=== PATIENT | female | born 1965 | race Caucasian/White ===

== ENCOUNTER → 2016-05-17 | Outpatient (CLI) | payer OTHER ==
--- NOTE | 2016-05-17 12:03 | US ---
EXAMINATION TYPE: US abdomen complete DATE OF EXAM: 05/17/2016 8:12 AM COMPARISON: CT abdomen pelvis 26 June 2013 CLINICAL HISTORY: US. Abdominal cramping, nausea, bloating, cholecystectomy EXAM MEASUREMENTS: Liver Length: 13.9cm Gallbladder Wall: surgically absent CBD: 0.6cm Spleen: 11.7cm Right Kidney: 11.1 x 4.3 x 5.6cm Left Kidney: 11.8 x 5.4 x 5.2cm ANATOMY: Visualized portions of the pancreas are unremarkable. Abdominal aorta is not aneurysmal. Inferior bjorn a cava normal as seen. The liver shows a coarse echotexture. There is no ascites. Pancreas: visualized portions appear wnl, tail obscured by overlying bowel Liver: small cystic area = 0.4 x 0.4 x 0.5cm Gallbladder: surgically absent CBD: 6 mm which is within normal limits status post cholecystectomy. Spleen: wnl Right Kidney: no evidence of hydronephrosis/mass Left Kidney: lobulated, no evidence of hydronephrosis/mass Upper IVC: wnl Abd Aorta: appears wnl The spleen is unremarkable. Kidneys are symmetric and free of hydronephrosis. No renal lesions are seen. IMPRESSION: There may be fatty infiltration of the liver versus hepatocellular disease, probable smal l cyst noted. Postcholecystectomy change.
--- NOTE | 2016-05-17 12:11 | US ---
EXAMINATION TYPE: US extremity nonvasc mass LT DATE OF EXAM: 05/17/2016 9:48 AM COMPARISON: NONE CLINICAL HISTORY: US. Swelling/lump left upper outer thigh that changes in size Ultrasound performed at the area of patient's palpable abnormality upper outer left thigh TECHNOLOGIST IMPRESSION: 2 hyperechoic areas noted within patient's area of concern ( left upper out er thigh) measuring 0.4 x 0.3 x 0.4cm and 1.0 x 0.4 x 0.8cm Echogenic foci show nonaggressive appearance. IMPRESSION: Findings could possibly represent lipomas, follow-up clinically.
--- NOTE | 2016-05-17 12:15 | US ---
EXAMINATION TYPE: US pelvic complete DATE OF EXAM: 05/17/2016 8:45 AM COMPARISON: NONE CLINICAL HISTORY: US. Pelvic pain TECHNIQUE: Transvaginal (TV) and Transabdominal (TA) Date of LMP: 2 years ago EXAM MEASUREMENTS: Uterus: 7.1 x 4.0 x 5.0cm Endometrial Stripe: 0.4cm Right Ovary: 2.6 x 1.5 x 1.5cm Left Ovary: 2.0 x 1.4 x 1.3cm FINDINGS: Transabdominal pelvic ultrasound scanning performed. Endovaginal scanning performed for better evalua tion of the uterus 1. Uterus: Anteverted Nabothian cysts,Heterogeneous in appearance with multiple hypoechoic myomet rial foci suggestive of fibroids noted, largest = 1.9 x 1.8 x 2.6cm at posterior body 2. Endometrium: appears wnl 3. Right Ovary: appears wnl as visualized 4. Left Ovary: appears wnl as visualized 5. Bilateral Adnexa: wnl 6. Posterior cul-de-sac: appears wnl There is no fluid IMPRESSION: Fibroid uterus
--- NOTE | 2016-05-25 10:55 | P.ARTDOP ---
Arterial Doppler LOWER EXTREMITY ARTERIAL DOPPLER: DATE OF SERVICE: 05/17/2016 Reason for study: Intermittent leg pain. Doppler waveforms: Multiphasic bilaterally throughout. Pulse volume recording: Normal configuration. Pressure gradients: None. Ankle-brachial indices: Greater than 1 bilaterally. Toe pressures: 113 on the right, 110 on the left Impression: Normal study.
== END | disposition home or self-care (01) ==
LOC: RADUSWWP 07:23
PROVIDERS: ATTEND Family Medicine
DX: D25.9 Leiomyoma of uterus, unspecified (principal); R25.2 Cramp and spasm; R22.9 Localized swelling, mass and lump, unspecified
CPT/HCPCS: 76700; 76830; 76856; 93923

== ENCOUNTER → 2016-05-27 | Outpatient (CLI) | payer OTHER ==
--- NOTE | 2016-05-30 07:19 | USB ---
Reason for exam: additional evaluation requested from abnormal screening. History: Patient is postmenopausal. Physical Findings: Nurse Summary: 1cm nodule in the left breast at 6 o'clock retroareolar position (nurse mm). US Breast Workup Limited LT Left breast ultrasound demonstrates a 2mm cystic lesion at 4 o'clock. These results were verbally communicated with the patient and result sheet given to the patient on 05/27/16. ASSESSMENT: Benign, BI-RAD 2 RECOMMENDATION: Return to routine screening mammogram schedule for both breasts. Manage patient on a clinical basis.
== END | disposition home or self-care (01) ==
LOC: RADMAMWWP 14:13
PROVIDERS: ATTEND Family Medicine
DX: R92.8 Other abnormal and inconclusive findings on diagnostic imaging of breast (principal)

== ENCOUNTER 2016-07-18 20:14 | Emergency (ER) | payer OTHER ==
[2016-07-18 21:32] LABS: Basophils % (A) 1 %; CHCM 35.7; Eosinophils # (A) 0.2 k/uL (0-0.7); Eosinophils % (A) 4 %; HCT 41.2 % (34.0-46.0); HDW 2.92; HGB 14.1 gm/dL (11.4-16.0); Luc % (Auto) 2; Lymphocytes # (A) 0.9 k/uL (1.0-4.8); Lymphocytes % (A) 19 %; MCH 31.8 pg (25.0-35.0); MCHC 34.1 g/dL (31.0-37.0); MCV 93.1 fL (80.0-100.0); Monocytes # (A) 0.3 k/uL (0-1.0); Monocytes % (A) 6 %; Neutrophils # (A) 3.4 k/uL (1.3-7.7); Neutrophils % (A) 68 %; RBC 4.42 m/uL (3.80-5.40); RDW 13.6 % (11.5-15.5); WBC (Perox) 5.09
[2016-07-18 21:34] LABS: Appearance,Urine Clear (Clear); Bilirubin,Urine Negative (Negative); Glucose,Urine (UA) Negative (Negative); Ketones,Urine Negative (Negative); Leukocyte Esterase,Urine Negative (Negative); Nitrite,Urine Negative (Negative); PH, Urine 6.5 (5.0-8.0); Particle Count 1773; Protein,Urine Negative (Negative); RBC,Urine 2 /hpf (0-5); Specific Gravity,Urine 1.014 (1.001-1.035); Squamous Epithelial Cell,Urine 2 /hpf (0-4); UA Billing (MACRO vs. MICRO) MICRO; Urobilinogen,Urine <2.0 mg/dL (<2.0); WBC,Urine 1 /hpf (0-5)
[2016-07-18 21:41] LABS: ALT 68 U/L (9-52); AST 50 U/L (14-36); Alkaline Phosphatase 76 U/L (38-126); Amylase 59 U/L (30-110); Anion Gap 11 mmol/L; Blood Urea Nitrogen 15 mg/dL (7-17); Calcium 10.1 mg/dL (8.4-10.2); Carbon Dioxide 22 mmol/L (22-30); Chloride 109 mmol/L (98-107); Glucose 96 mg/dL (74-99); Non-African American GFR(MDRD) >60 (>60 ml/min/1.73 sqM); Potassium 4.1 mmol/L (3.5-5.1); Sodium 142 mmol/L (137-145); Total Bilirubin 0.5 mg/dL (0.2-1.3); Total Protein 6.6 g/dL (6.3-8.2)
[2016-07-18] MEDS ORDERED: KETOROLAC 30 MG/ML 1 ML VIAL IVP STA (21:45)
--- NOTE | 2016-07-18 21:45 | ED ---
General Adult HPI - General Chief complaint: Abdominal Pain Stated complaint: Abd Pain/Vomiting Time Seen by Provider: 07/18/16 21:00 Source: patient Mode of arrival: ambulatory Limitations: no limitations - History of Present Illness Initial comments: This patient is a 50-year-old woman who comes in with complaint of approximate 2 weeks of which she is describing as flulike symptoms, namely cough, congestion , fever and chills, as well as assorted body aches. The patient's was triaged into the system as chief complaint of abdominal pain and I did ask her about this she indicates the area along the right costal margin and states she believes that this is due to the coughing she has been doing. Onset/Timin -: week(s) Quality: aching, dull Consistency: constant Improves with: none Worsens with: none Treatments Prior to Arrival: none - Related Data Home Medications Medication Instructions Recorded Confirmed Multivit-Min/Fe Fum/FA/Vit K 1 cap PO DAILY 07/18/16 07/18/16 [Women's Multivatimin] Previous Rx's Medication Instructions Recorded Azithromycin [Zithromax Z-pack] 250 mg PO DIRECTED #6 tab 07/18/16 Allergies Allergy/AdvReac Type Severity Reaction Status Date / Time aspirin AdvReac Nausea Verified 07/18/16 21:30 Review of Systems ROS Statement: Those systems with pertinent positive or pertinent negative responses have been documented in the HPI. ROS Other: All systems not noted in ROS Statement are negative. Constitutional: Reports: fever, chills ENT: Reports: throat pain, congestion Respiratory: Reports: cough. Denies: dyspnea, wheezes, hemoptysis Cardiovascular: Denies: chest pain, palpitations, orthopnea, syncope Gastrointestinal: Reports: as per HPI, abdominal pain. Denies: nausea, vomiting , diarrhea, constipation, melena, hematochezia Genitourinary: Denies: dysuria, hematuria Musculoskeletal: Reports: myalgia. Denies: back pain Skin: Denies: rash Neurological: Reports: headache. Denies: weakness, numbness, paresthesias Past Medical History Past Medical History: No Reported History History of Any Multi-Drug Resistant Organisms: None Reported Past Surgical History: Cholecystectomy Past Psychological History: No Psychological Hx Reported Smoking Status: Current every day smoker Past Alcohol Use History: None Reported Past Drug Use History: None Reported General Exam Limitations: no limitations General appearance: alert, in no apparent distress Head exam: Present: atraumatic, normocephalic Eye exam: Present: normal appearance. Absent: scleral icterus, conjunctival injection ENT exam: Present: mucous membranes dry, TM's normal bilaterally, normal external ear exam Neck exam: Present: normal inspection, full ROM, lymphadenopathy. Absent: meningismus Respiratory exam: Present: normal lung sounds bilaterally. Absent: respiratory distress, wheezes, rales, rhonchi, stridor, chest wall tenderness Cardiovascular Exam: Present: regular rate, normal rhythm, normal heart sounds. Absent: systolic murmur, diastolic murmur, rubs, gallop GI/Abdominal exam: Present: soft. Absent: distended, tenderness, guarding, rebound, mass, pulsatile mass, hernia Extremities exam: Present: normal inspection, normal capillary refill. Absent: pedal edema, calf tenderness Back exam: Present: normal inspection. Absent: CVA tenderness (R), CVA tenderness (L) Neurological exam: Present: alert Skin exam: Present: warm, dry, intact, normal color. Absent: rash, cyanosis, diaphoretic, erythema, petechiae, pallor, mottled Course Vital Signs 07/18/16 07/18/16 20:26 23:19 Temperature 101.4 F H 98.3 F Pulse Rate 84 83 Respiratory 16 18 Rate Blood Pressure 126/56 96/50 O2 Sat by Pulse 97 98 Oximetry Medical Decision Making - Lab Data Result diagrams: 07/18/16 21:24 07/18/16 21:24 Lab Results 07/18/16 07/18/16 07/18/16 Range/Units 21:15 21:15 21:15 WBC (3.8-10.6) k/uL RBC (3.80-5.40) m/uL Hgb (11.4-16.0) gm/dL Hct (34.0-46.0) % MCV (80.0-100.0) fL MCH (25.0-35.0) pg MCHC (31.0-37.0) g/dL RDW (11.5-15.5) % Plt Count (150-450) k/uL Neutrophils % % Lymphocytes % % Monocytes % % Eosinophils % % Basophils % % Neutrophils # (1.3-7.7) k/uL Lymphocytes # (1.0-4.8) k/uL Monocytes # (0-1.0) k/uL Eosinophils # (0-0.7) k/uL Basophils # (0-0.2) k/uL Sodium (137-145) mmol/L Potassium (3.5-5.1) mmol/L Chloride (98-107) mmol/L Carbon Dioxide (22-30) mmol/L Anion Gap mmol/L BUN (7-17) mg/dL Creatinine (0.52-1.04) mg/dL Est GFR (MDRD) Af Amer (>60 ml/min/1.73 sqM) Est GFR (MDRD) Non-Af (>60 ml/min/1.73 sqM) Glucose (74-99) mg/dL Calcium (8.4-10.2) mg/dL Total Bilirubin (0.2-1.3) mg/dL AST (14-36) U/L ALT (9-52) U/L Alkaline Phosphatase (38-126) U/L Total Protein (6.3-8.2) g/dL Albumin (3.5-5.0) g/dL Amylase (30-110) U/L Lipase (23-300) U/L Urine Color Yellow Urine Appearance Clear (Clear) Urine pH 6.5 (5.0-8.0) Ur Specific Thorpe 1.014 (1.001-1.035) Urine Protein Negative (Negative) Urine Glucose (UA) Negative (Negative) Urine Ketones Negative (Negative) Urine Blood Small H (Negative) Urine Nitrate Negative (Negative) Urine Bilirubin Negative (Negative) Urine Urobilinogen <2.0 (<2.0) mg/dL Ur Leukocyte Esterase Negative (Negative) Urine RBC 2 (0-5) /hpf Urine WBC 1 (0-5) /hpf Ur Squamous Epith Cells 2 (0-4) /hpf Influenza Type A RNA Not Detected (Not Detectd) Influenza Type B (PCR) Detected H (Not Detectd) Group A Strep Rapid Negative (Negative) 07/18/16 07/18/16 Range/Units 21:24 21:24 WBC 5.0 (3.8-10.6) k/uL RBC 4.42 (3.80-5.40) m/uL Hgb 14.1 (11.4-16.0) gm/dL Hct 41.2 (34.0-46.0) % MCV 93.1 (80.0-100.0) fL MCH 31.8 (25.0-35.0) pg MCHC 34.1 (31.0-37.0) g/dL RDW 13.6 (11.5-15.5) % Plt Count 193 (150-450) k/uL Neutrophils % 68 % Lymphocytes % 19 % Monocytes % 6 % Eosinophils % 4 % Basophils % 1 % Neutrophils # 3.4 (1.3-7.7) k/uL Lymphocytes # 0.9 L (1.0-4.8) k/uL Monocytes # 0.3 (0-1.0) k/uL Eosinophils # 0.2 (0-0.7) k/uL Basophils # 0.0 (0-0.2) k/uL Sodium 142 (137-145) mmol/L Potassium 4.1 (3.5-5.1) mmol/L Chloride 109 H (98-107) mmol/L Carbon Dioxide 22 (22-30) mmol/L Anion Gap 11 mmol/L BUN 15 (7-17) mg/dL Creatinine 0.50 L (0.52-1.04) mg/dL Est GFR (MDRD) Af Amer >60 (>60 ml/min/1.73 sqM) Est GFR (MDRD) Non-Af >60 (>60 ml/min/1.73 sqM) Glucose 96 (74-99) mg/dL Calcium 10.1 (8.4-10.2) mg/dL Total Bilirubin 0.5 (0.2-1.3) mg/dL AST 50 H (14-36) U/L ALT 68 H (9-52) U/L Alkaline Phosphatase 76 (38-126) U/L Total Protein 6.6 (6.3-8.2) g/dL Albumin 4.1 (3.5-5.0) g/dL Amylase 59 (30-110) U/L Lipase 95 (23-300) U/L Urine Color Urine Appearance (Clear) Urine pH (5.0-8.0) Ur Specific Thorpe (1.001-1.035) Urine Protein (Negative) Urine Glucose (UA) (Negative) Urine Ketones (Negative) Urine Blood (Negative) Urine Nitrate (Negative) Urine Bilirubin (Negative) Urine Urobilinogen (<2.0) mg/dL Ur Leukocyte Esterase (Negative) Urine RBC (0-5) /hpf Urine WBC (0-5) /hpf Ur Squamous Epith Cells (0-4) /hpf Influenza Type A RNA (Not Detectd) Influenza Type B (PCR) (Not Detectd) Group A Strep Rapid (Negative) Disposition Clinical Impression: Pneumonia, Influenza B Disposition: HOME SELF-CARE Condition: Fair Instructions: Pneumonia (ED), Influenza (ED) Prescriptions: Azithromycin [Zithromax Z-pack] 250 mg PO DIRECTED #6 tab Referrals: Mariana Arce MD [Primary Care Provider] - 1-2 days
--- NOTE | 2016-07-18 22:14 | XR ---
History right lower quadrant pain. Comparison none. Technique 3 views. FINDINGS: Bowel gas pattern is normal. There is no sign of intestinal obstruction or pneumoperitoneum. Fecal pa ttern is normal. There is no sign of a mass. There are no pathologic calcifications over the kidneys. There is probably some infiltrate in the right lower lobe. Left lung is clear. There are no patholog ic calcifications over the kidneys. CONCLUSION: Nonacute abdomen. Right lower lobe pneumonia. Normal heart.
[2016-07-18 23:19] VITALS: RESP 18
[2016-07-18] MEDS ORDERED: AZITHROMYCIN 500 MG TAB PO STA (23:19)
[2016-07-18] MEDS ORDERED: SODIUM CHLORIDE 0.9% 1,000 ML IV ONE (23:21)
[2016-07-18] MEDS ORDERED: IBUPROFEN 600 MG TAB PO STA (23:35)
[2016-07-19 00:13] VITALS: BP 102/65; PULSE 74; TEMP 98.2
== END 2016-07-19 00:14 | disposition home or self-care (01) ==
LOC: EC 20:14
DX: J10.1 Influenza due to other identified influenza virus with other respiratory manifestations (principal); J18.9 Pneumonia, unspecified organism; R10.9 Unspecified abdominal pain; F17.200 Nicotine dependence, unspecified, uncomplicated; Z79.899 Other long term (current) drug therapy; Z88.6 Allergy status to analgesic agent; Z90.49 Acquired absence of other specified parts of digestive tract
CPT/HCPCS: 99284 ×2; 96365 ×2; 96375 ×2; 96361 ×2; 36415; 80053; 82150; 83690; 85025; 81001; 87081; 87430; 87502; 74022; J0696; J1885

== ENCOUNTER 2016-09-07 15:52 | Emergency (ER) | payer OTHER ==
[2016-09-07 16:00] VITALS: BP 122/64; PULSE 71; RESP 18; TEMP 98.3
--- NOTE | 2016-09-07 16:12 | ED ---
Upper Extremity HPI - General Chief Complaint: Extremity Injury, Upper Stated Complaint: left shoulder pain Time Seen by Provider: 09/07/16 16:01 Source: patient, RN notes reviewed, old records reviewed Mode of arrival: ambulatory Limitations: no limitations - History of Present Illness Initial Comments: Patient is a 51-year-old female with chief complaint of left shoulder pain for the past year. Patient states that she over the past few months she's had decreased range of motion. Unable to lift it above her head. She is right handed. 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 Patient states that her pain is not managed with the Motrin. She reports that she takes Motrin all the time. Patient states she feels like knots in her muscles in the back of her shoulder and spine. She denies any elbow or wrist pain. She reports that occasionally she'll get some numbness and tingling shooting down the upper arm. Patient denies any recent fever, chills, shortness of breath, chest pain, back pain, abdominal pain, nausea vomiting, numbness or tingling, dysuria or hematuria, constipation or diarrhea, headaches or visual changes, or any other current symptoms - Related Data Home Medications Medication Instructions Recorded Confirmed Multivit-Min/Fe Fum/FA/Vit K 1 cap PO DAILY 07/18/16 07/18/16 [Women's Multivatimin] Previous Rx's Medication Instructions Recorded Azithromycin [Zithromax Z-pack] 250 mg PO DIRECTED #6 tab 07/18/16 Cyclobenzaprine [Flexeril] 10 mg PO TID #15 tab 09/07/16 traMADol HCl [Ultram] 50 mg PO Q6H PRN #15 tab 09/07/16 Allergies Allergy/AdvReac Type Severity Reaction Status Date / Time aspirin AdvReac Nausea Verified 09/07/16 16:00 Review of Systems ROS Statement: Those systems with pertinent positive or pertinent negative responses have been documented in the HPI. ROS Other: All systems not noted in ROS Statement are negative. Past Medical History Past Medical History: No Reported History History of Any Multi-Drug Resistant Organisms: None Reported Past Surgical History: Cholecystectomy, Orthopedic Surgery Additional Past Surgical History / Comment(s): rt leg Past Psychological History: No Psychological Hx Reported Smoking Status: Current every day smoker Past Alcohol Use History: None Reported Past Drug Use History: None Reported General Exam - General Exam Comments Initial Comments: Vanessa 51 year old male, no distress. Limitations: no limitations General appearance: alert, in no apparent distress Head exam: Present: atraumatic, normocephalic, normal inspection Eye exam: Present: normal appearance, PERRL, EOMI. Absent: scleral icterus, conjunctival injection, periorbital swelling ENT exam: Present: normal exam, mucous membranes moist Neck exam: Present: normal inspection. Absent: tenderness, meningismus, lymphadenopathy Respiratory exam: Present: normal lung sounds bilaterally. Absent: respiratory distress, wheezes, rales, rhonchi, stridor Cardiovascular Exam: Present: regular rate, normal rhythm, normal heart sounds. Absent: systolic murmur, diastolic murmur, rubs, gallop, clicks GI/Abdominal exam: Present: soft, normal bowel sounds. Absent: distended, tenderness, guarding, rebound, rigid Extremities exam: Present: normal inspection, full ROM, normal capillary refill. Absent: tenderness, pedal edema, joint swelling, calf tenderness Left Shoulder Exam: Present: tenderness, swelling. Absent: normal inspection, full ROM (Patient has limited abduction and exteinsion. Unable to perform apply scratch test. Postive Hawkin test), abrasion, laceration, ecchymosis, deformity , crepitus, dislocation, erythema, tenderness over AC joint Upper Arm exam: Present: normal inspection, full ROM Elbow exam: Present: normal inspection, full ROM Forearm Wrist exam: Present: normal inspection, full ROM Hand Wrist exam: Present: normal inspection, full ROM Neurosensory exam: Present: 2-point discrimination, radial nerve intact Vascular: Present: normal capillary refill Back exam: Present: normal inspection Neurological exam: Present: alert, oriented X3, CN II-XII intact Psychiatric exam: Present: normal affect, normal mood Skin exam: Present: warm, dry, intact, normal color. Absent: rash Course Vital Signs 09/07/16 15:57 Temperature 98.3 F Pulse Rate 71 Respiratory 18 Rate Blood Pressure 122/64 O2 Sat by Pulse 97 Oximetry Medical Decision Making - Medical Decision Making Patient is a pleasant 51-year-old female with chief complaint of left shoulder pain. Patient states that she's had this pain off and on for a year, patient states that she is slowly decreasing in her range of motion. Patient does have positive Apley scratch test. Positive empty can test. Patient has significant evidence of rotator cuff damage. She has not seen an orthopedic physician. Patient has been informed of her x-ray results, which show no significant acute fractures or processes. Patient states that he is been taking Motrin while times a day for the past few months. Discussed the patient can be started on pain medication. Discussed the importance of following up with orthopedic physician for further imaging studies such as an MRI. Possible steroid injections and physical therapy. Patient agrees with treatment plan will comply. Return parameters were discussed. I also discussed the possibility of adhesive capsulitis. - Radiology Data Radiology results: report reviewed X-ray reviewed and negative for any acute process. Disposition Clinical Impression: Disorder of left rotator cuff Disposition: HOME SELF-CARE Condition: Good Instructions: Rotator Cuff Injury (ED), Rotator Cuff Tendinitis (ED) Additional Instructions: Patient advised to take pain medication and continue taking anti-inflammatory medication. Follow-up with orthopedic physician within the next week. Patient advised to continue use some range of motion. Apply ice over the shoulder. Return to the emergency department if any alarming signs or symptoms occur. Prescriptions: Cyclobenzaprine [Flexeril] 10 mg PO TID #15 tab traMADol HCl [Ultram] 50 mg PO Q6H PRN #15 tab PRN Reason: Pain Referrals: Adolfo Goodwin MD [STAFF PHYSICIAN] - 1-2 days Time of Disposition: 16:22
--- NOTE | 2016-09-07 16:15 | XR ---
EXAMINATION TYPE: XR shoulder complete LT DATE OF EXAM: 09/07/2016 4:12 PM CLINICAL HISTORY: pain COMPARISON: NONE TECHNIQUE: Three views of the left shoulder are obtained. FINDINGS: There is no acute fracture/dislocation evident. The acromioclavicular and glenohumeral romaine int spaces appear within normal limits. The visualized ribs are intact and unremarkable. IMPRESSION: 1. There is no acute fracture or dislocation. ICD 10 NO FRACTURE, INITIAL EVALUATION
== END 2016-09-07 16:31 | disposition home or self-care (01) ==
LOC: EC 15:52
DX: M75.102 Unspecified rotator cuff tear or rupture of left shoulder, not specified as traumatic (principal); F17.200 Nicotine dependence, unspecified, uncomplicated; Z79.899 Other long term (current) drug therapy; Z88.6 Allergy status to analgesic agent; X50.0XXA Overexertion from strenuous movement or load, initial encounter
CPT/HCPCS: 99284

== ENCOUNTER 2017-10-06 20:44 | Observation (INO) | payer OTHER ==
--- NOTE | 2017-10-06 21:13 | ED ---
Neuro HPI - General Chief Complaint: Neuro Symptoms/Deficit Stated Complaint: Poss CVA Time Seen by Provider: 10/06/17 21:09 Source: patient Mode of arrival: wheelchair Limitations: no limitations - History of Present Illness Is the patient presenting with stroke symptoms?: Yes Last Known Well Date: 10/06/17 Last Known Well Time: 18:00 -: hour(s) (3) Initial Comments: This patient is a 52-year-old woman who presents with a few complaints. The patient states that tonight at the end of work, at 6 PM she started having a funny feeling of tingling and numbness to the left side of her face and arm. She was having trouble with speech. The patient also complains of weakness of the legs, indicating both legs. Finally she complains of having intermittent left thigh pain and swelling but this is been going on between 2 and 3 months. Patient states she had a previous blood clot, she is not currently taking any medication for that. No chest pain, palpitations, hemoptysis, dyspnea, lightheadedness or syncope. Location: speech, left face, left arm History of same: No Place: work Severity: moderate Quality: weak, numb Improves With: time Worsens With: none Context: sudden onset Associated Symptoms: denies other symptoms Treatments Prior to Arrival: none - Related Data Home Medications: Home Medications Medication Instructions Recorded Confirmed No Known Home Medications [No 10/06/17 10/06/17 Known Home Medications] Allergies/Adverse Reactions: Allergies Allergy/AdvReac Type Severity Reaction Status Date / Time aspirin AdvReac Nausea Verified 10/06/17 21:20 Review of Systems ROS Statement: Those systems with pertinent positive or pertinent negative responses have been documented in the HPI. ROS Other: All systems not noted in ROS Statement are negative. Constitutional: Reports: weakness. Denies: fever, chills Eyes: Denies: eye pain, vision change Respiratory: Denies: cough, dyspnea Cardiovascular: Denies: chest pain, palpitations, edema, syncope Gastrointestinal: Denies: abdominal pain, nausea, vomiting, diarrhea, constipation Skin: Denies: rash Neurological: Reports: weakness, numbness. Denies: headache, paresthesias, confusion Psychiatric: Reports: anxiety General Exam Limitations: no limitations General appearance: alert, in no apparent distress Head exam: Present: atraumatic, normocephalic Eye exam: Present: normal appearance, PERRL, EOMI. Absent: scleral icterus, conjunctival injection, nystagmus ENT exam: Present: normal oropharynx Neck exam: Present: normal inspection Respiratory exam: Present: normal lung sounds bilaterally. Absent: respiratory distress, wheezes, rales, rhonchi, stridor Cardiovascular Exam: Present: regular rate, normal rhythm, normal heart sounds GI/Abdominal exam: Present: soft. Absent: distended, tenderness, guarding, rebound Extremities exam: Present: normal inspection, normal capillary refill. Absent: pedal edema, calf tenderness Back exam: Absent: CVA tenderness (R), CVA tenderness (L) Neurological exam: Present: alert, oriented X3, other (Patient's neurologic exam not suggestive of acute stroke. Patient's neuro exam is not reproducible and does seem to fluctuate with distraction.). Absent: CN II-XII intact, motor sensory deficit Skin exam: Present: warm, dry, intact, normal color. Absent: rash Stroke MDM - Lab Data Result diagrams: 10/06/17 21:13 10/06/17 21:13 Lab Results 10/06/17 10/06/17 10/06/17 Range/Units 21:13 21:13 21:13 WBC 8.0 (3.8-10.6) k/uL RBC 4.94 (3.80-5.40) m/uL Hgb 15.7 (11.4-16.0) gm/dL Hct 45.2 (34.0-46.0) % MCV 91.4 (80.0-100.0) fL MCH 31.8 (25.0-35.0) pg MCHC 34.8 (31.0-37.0) g/dL RDW 13.6 (11.5-15.5) % Plt Count 241 (150-450) k/uL Neutrophils % 70 % Lymphocytes % 23 % Monocytes % 5 % Eosinophils % 1 % Basophils % 0 % Neutrophils # 5.6 (1.3-7.7) k/uL Lymphocytes # 1.8 (1.0-4.8) k/uL Monocytes # 0.4 (0-1.0) k/uL Eosinophils # 0.1 (0-0.7) k/uL Basophils # 0.0 (0-0.2) k/uL PT (9.0-12.0) sec INR (<1.2) APTT (22.0-30.0) sec Sodium 144 (137-145) mmol/L Potassium 3.5 (3.5-5.1) mmol/L Chloride 108 H (98-107) mmol/L Carbon Dioxide 20 L (22-30) mmol/L Anion Gap 16 mmol/L BUN 14 (7-17) mg/dL Creatinine 0.60 (0.52-1.04) mg/dL Est GFR (CKD-EPI)AfAm >90 (>60 ml/min/1.73 sqM) Est GFR (CKD-EPI)NonAf >90 (>60 ml/min/1.73 sqM) Glucose 101 H (74-99) mg/dL Calcium 10.6 H (8.4-10.2) mg/dL Total Bilirubin 0.7 (0.2-1.3) mg/dL AST 19 (14-36) U/L ALT 31 (9-52) U/L Alkaline Phosphatase 60 (38-126) U/L Total Creatine Kinase 50 (30-135) U/L CK-MB (CK-2) <0.2 (0.0-2.4) ng/mL CK-MB (CK-2) Rel Index Troponin I <0.012 (0.000-0.034) ng/mL Total Protein 7.1 (6.3-8.2) g/dL Albumin 4.6 (3.5-5.0) g/dL 10/06/17 Range/Units 21:13 WBC (3.8-10.6) k/uL RBC (3.80-5.40) m/uL Hgb (11.4-16.0) gm/dL Hct (34.0-46.0) % MCV (80.0-100.0) fL MCH (25.0-35.0) pg MCHC (31.0-37.0) g/dL RDW (11.5-15.5) % Plt Count (150-450) k/uL Neutrophils % % Lymphocytes % % Monocytes % % Eosinophils % % Basophils % % Neutrophils # (1.3-7.7) k/uL Lymphocytes # (1.0-4.8) k/uL Monocytes # (0-1.0) k/uL Eosinophils # (0-0.7) k/uL Basophils # (0-0.2) k/uL PT 10.6 (9.0-12.0) sec INR 1.1 (<1.2) APTT 22.8 (22.0-30.0) sec Sodium (137-145) mmol/L Potassium (3.5-5.1) mmol/L Chloride (98-107) mmol/L Carbon Dioxide (22-30) mmol/L Anion Gap mmol/L BUN (7-17) mg/dL Creatinine (0.52-1.04) mg/dL Est GFR (CKD-EPI)AfAm (>60 ml/min/1.73 sqM) Est GFR (CKD-EPI)NonAf (>60 ml/min/1.73 sqM) Glucose (74-99) mg/dL Calcium (8.4-10.2) mg/dL Total Bilirubin (0.2-1.3) mg/dL AST (14-36) U/L ALT (9-52) U/L Alkaline Phosphatase (38-126) U/L Total Creatine Kinase (30-135) U/L CK-MB (CK-2) (0.0-2.4) ng/mL CK-MB (CK-2) Rel Index Troponin I (0.000-0.034) ng/mL Total Protein (6.3-8.2) g/dL Albumin (3.5-5.0) g/dL - Thrombolytic Inclusion/Exclusion Thrombolytic Exclusion Criteria: Symptom Onset > 3 Hours Thrombolytic Contraindications: Rapidly Improving s/s - Medical Decision Making Patient's 52-year-old woman who is here with difficulties with speech, with left -sided numbness, and some extremity weakness. The patient states that she is feeling much better and that the speech is clearing up, and in talking with her there is noticeable improvement. The patient's extremity weakness does not appear to be strokelike on the exam. The lower extremities both were manifesting weakness on the exam though this does appear to be effort dependent. The patient is not a candidate for TPA based both on the neurologic exam and on the timing. Patient will be admitted for further evaluation and for neurology consult. - EKG Data -: EKG Interpreted by Me EKG shows normal: sinus rhythm, axis (Normal), intervals (Normal), QRS complexes (Normal), ST-T waves (Normal) Rate: normal (Rate 85 bpm) Interpretation: normal EKG Past Medical History Past Medical History: No Reported History History of Any Multi-Drug Resistant Organisms: None Reported Past Surgical History: Cholecystectomy, Orthopedic Surgery Additional Past Surgical History / Comment(s): rt leg Past Psychological History: Anxiety Smoking Status: Current every day smoker Past Alcohol Use History: None Reported Past Drug Use History: None Reported Course Vital Signs 10/06/17 10/06/17 10/06/17 20:45 20:51 21:46 Temperature 98.0 F Pulse Rate 92 90 91 Respiratory 18 18 20 Rate Blood Pressure 122/56 119/66 121/79 O2 Sat by Pulse 96 97 97 Oximetry 10/06/17 10/06/17 10/06/17 21:56 22:18 22:34 Temperature Pulse Rate 76 77 20 L Respiratory 20 16 20 Rate Blood Pressure 121/59 135/73 119/62 O2 Sat by Pulse 97 99 Oximetry 10/06/17 10/07/17 10/07/17 23:00 00:00 00:59 Temperature Pulse Rate 71 71 72 Respiratory 20 18 18 Rate Blood Pressure 117/60 112/70 110/52 O2 Sat by Pulse 97 98 98 Oximetry Disposition Clinical Impression: TIA (transient ischemic attack), Leg pain, left Disposition: ADMITTED IP TO THIS HOSP Condition: Good Is patient prescribed a controlled substance at d/c from ED?: No Referrals: None,Stated [Primary Care Provider] - 1-2 days
[2017-10-06] MEDS ORDERED: RX INFO: IV CONTRAST WAS GIVEN 1 EACH MISC MISCELLANE PRN (21:23)
[2017-10-06 21:29] LABS: Basophils % (A) 0 %; Eosinophils # (A) 0.1 k/uL (0-0.7); Eosinophils % (A) 1 %; HCT 45.2 % (34.0-46.0); HGB 15.7 gm/dL (11.4-16.0); Lymphocytes # (A) 1.8 k/uL (1.0-4.8); Lymphocytes % (A) 23 %; MCH 31.8 pg (25.0-35.0); MCHC 34.8 g/dL (31.0-37.0); MCV 91.4 fL (80.0-100.0); Mean Platelet Volume 8.7; Monocytes # (A) 0.4 k/uL (0-1.0); Monocytes % (A) 5 %; Neutrophils # (A) 5.6 k/uL (1.3-7.7); Neutrophils % (A) 70 %; Platelet Count 241 k/uL (150-450); RBC 4.94 m/uL (3.80-5.40); RDW 13.6 % (11.5-15.5)
[2017-10-06 21:37] LABS: ALT 31 U/L (9-52); AST 19 U/L (14-36); Albumin 4.6 g/dL (3.5-5.0); Alkaline Phosphatase 60 U/L (38-126); Anion Gap 16 mmol/L; Blood Urea Nitrogen 14 mg/dL (7-17); Calcium 10.6 mg/dL (8.4-10.2); Carbon Dioxide 20 mmol/L (22-30); Chloride 108 mmol/L (98-107); Glucose 101 mg/dL (74-99); Potassium 3.5 mmol/L (3.5-5.1); Sodium 144 mmol/L (137-145); Total Bilirubin 0.7 mg/dL (0.2-1.3); Total Protein 7.1 g/dL (6.3-8.2)
[2017-10-06 21:46] LABS: INR 1.1 (<1.2); Partial Thromboplastin Time 22.8 sec (22.0-30.0); Prothrombin Time 10.6 sec (9.0-12.0)
[2017-10-06 21:50] LABS: Creatine Kinase 50 U/L (30-135)
--- NOTE | 2017-10-06 21:54 | CT ---
EXAMINATION TYPE: CT brain wo con for TPA DATE OF EXAM: 10/06/2017 COMPARISON: NONE HISTORY: Garbled speech and left sided weakness and facial numbness. CT DLP: 974.6 mGycm Automated exposure control for dose reduction was used. FINDINGS: Ventricles and sulci appear normal. There is no mass effect nor midline shift. There is no sign of in tracranial hemorrhage. The calvarium is intact. IMPRESSION: NORMAL HEAD CT SCAN.
--- NOTE | 2017-10-06 21:55 | XR ---
EXAMINATION TYPE: XR chest 2V DATE OF EXAM: 10/06/2017 COMPARISON: NONE HISTORY: Altered mental status TECHNIQUE: Frontal and lateral views of the chest are obtained. FINDINGS: There is no heart failure nor confluent pneumonic infiltrate. Heart and mediastinum are no rmal. Diaphragm is normal. There are chest leads. Bony thorax appears normal. IMPRESSION: Normal chest
[2017-10-06 22:03] LABS: Creatine Kinase MB <0.2 ng/mL (0.0-2.4); Troponin I <0.012 ng/mL (0.000-0.034)
--- NOTE | 2017-10-06 22:16 | CT ---
EXAMINATION TYPE: CT angio head neck DATE OF EXAM: 10/06/2017 HISTORY: Garbled speech and left sided weakness and facial numbness. COMPARISON: NONE CT DLP: 234.8 mGycm. Automated Exposure Control for Dose Reduction was Utilized. TECHNIQUE: CTA scan of the neck is performed with IV Contrast, patient injected with 65 mL of Isovue 370, axial images are obtained, coronal and sagittal reformatted images are reviewed. Three-D recons tructed images are created on an independent workstation and reviewed. FINDINGS: There is normal branching pattern of the great vessels on the aortic arch. There is no evidence of ca rotid artery aneurysm or dissection. There is arterial flow in the common internal and external carot id arteries bilaterally. There is bilateral vertebral artery flow. The right vertebral artery is larg er than the left. Carotid arteries appear widely patent. There is arterial flow in the anterior middle and posterior cerebral arteries. There is arterial flow in the vertebrobasilar artery system. The basilar artery appears to fill almost entirely from the ri ght side. I see no evidence of aneurysm or neovascularity. There is normal contrast opacification of the venous sinuses. There is no evidence of arterial intracranial stenosis. IMPRESSION: Normal CT angiogram of the neck. Normal CT angiogram of the brain.
[2017-10-07] MEDS ORDERED: HYDROcodone/APAP 5-325MG 1 EACH TAB PO STA ×2 (00:21→08:07)
--- NOTE | 2017-10-07 00:25 | US ---
EXAMINATION TYPE: US venous doppler duplex LE LT DATE OF EXAM: 10/07/2017 12:12 AM COMPARISON: NONE CLINICAL HISTORY: Pain. Patient is very agitated and not verbal to on call pharmacy technician, family members states she has severe leg pain and h/o dvt in left leg diagnosed last year, not on thinners SIDE PERFORMED: Left TECHNIQUE: The lower extremity deep venous system is examined utilizing real time linear array sonog angelita with graded compression, doppler sonography and color-flow sonography. VESSELS IMAGED: External Iliac Vein (EIV) Common Femoral Vein Deep Femoral Vein Greater Saphenous Vein * Femoral Vein Popliteal Vein Small Saphenous Vein * Proximal Calf Veins (* superficial vessels) Left Leg: Appearance of chronic DVT with thready flow and internal debris noted within FV, unable to fully compress dist FV, continuos flow pattern seen with doppler *challenging exam due to patients inability to hold still IMPRESSION: There is incomplete compressibility of the femoral vein consistent with chronic deep veno us thrombosis.
[2017-10-07] MEDS ORDERED: ONDANSETRON ODT 4 MG TAB PO PRN (00:59)
[2017-10-07] MEDS: ASPIRIN 325 MG TAB PO STA ×2 (01:03→01:06)
[2017-10-07 01:52] VITALS: BMI 32.3
[2017-10-07] MEDS: HEPARIN SODIUM,PORCINE 5,000 UNIT/ML 1 ML VIAL SQ SCH ×4 (02:05→17:39)
[2017-10-07 02:48] LABS: Cholesterol 140 mg/dL (<200); HDL Cholesterol 40 mg/dL (40-60); LDL Cholesterol,Calculated 84 mg/dL (0-99); Triglycerides 78 mg/dL (<150)
[2017-10-07 07:43] LABS: Appearance,Urine Clear (Clear); Bilirubin,Urine Negative (Negative); Blood,Urine Negative (Negative); Color,Urine Yellow; Glucose,Urine (UA) Negative (Negative); Ketones,Urine Negative (Negative); Leukocyte Esterase,Urine Negative (Negative); Nitrite,Urine Negative (Negative); Protein,Urine Trace (Negative); Urobilinogen,Urine <2.0 mg/dL (<2.0)
[2017-10-07 07:55] LABS: Specific Gravity,Urine >1.050 (1.001-1.035)
[2017-10-07] MEDS: FAMOTIDINE 20 MG TAB PO SCH ×2 (08:33→19:58)
[2017-10-07] MEDS: ALPRAZolam 0.25 MG TAB PO PRN ×2 (11:52→19:58)
[2017-10-07 12:46] LABS: Urine Alcohol Negative (Negative); Urine Barbiturate Negative (Negative); Urine Cocaine Negative (Negative); Urine Methadone Negative (Negative); Urine Opiates Positive (Negative); Urine Phencyclidine Negative (Negative)
--- NOTE | 2017-10-07 13:17 | P.CNNES ---
History of Present Illness Consult date: 10/07/17 Reason for Consult: Patient with left sided numbness and weakness and possible TIA. History of Present Illness: This patient is a 52-year-old right-handed white female who was in her usual state of health until yesterday afternoon. Patient works at a local store and apparently was noticing symptoms of left-sided tingling and numbness involving her left face arm and leg that started at about 6 PM yesterday evening. She has not had this type of symptoms previously. Her brother called her at work and noticed that she was having trouble getting her words out and her speech appeared to be slurred at times. She was advised to go to the emergency room where she was seen in the ER and the [facility] by Dr. Tello. Her symptoms suggested possibility of acute TIA or stroke. She was evaluated with NIH stroke scale and was not a candidate for TPA intervention as she was outside of the 3 hour window. Her symptoms also rapidly improved in the ER yesterday. The patient was sent for a computed tomography scan of the brain as well as a CT angiogram of the head and neck. CAT scan of the brain was reported normal. CTA angiogram of the head and neck was also reported normal. In the ER she also complained of left leg swelling and has a history of a chronic DVT in the left leg. She was sent for a venous Doppler ultrasound which confirmed evidence of a left leg chronic DVT. Patient states she has no previous history of TIA or stroke. There is a strong family history of stroke. She did describe generalized weakness yesterday as well as today but more so on her left side. As noted yesterday she noted paresthesias mostly involving her left face arm and leg. She has an ALLERGY to aspirin and has not been on any aspirin therapy. She was admitted to hospital for further neurological evaluation. She continues to have evidence of mild dysarthric speech. This is noted by her brother who is at bedside as well. Daughter also noted that she is been complaining of speech impairment and generalized weakness since admission. Apparently she has been having chest pain which is to be evaluated by cardiology. There is a question of possible underlying anxiety disorder that may be related to this. We have reviewed the results of her computed tomography scan the brain and CTA angiogram of the head and neck with her in detail. We have recommended she undergo a complete stroke evaluation including MRI of the brain. Patient will be closely monitored for any recurrent TIA symptoms. Her overall prognosis at this time remains very guarded. Review of Systems Constitutional: Denies chills, Denies fever Eyes: denies blurred vision, denies pain Ears, nose, mouth and throat: Denies headache, Denies sore throat Cardiovascular: Denies chest pain, Denies shortness of breath Respiratory: Denies cough Gastrointestinal: Denies abdominal pain, Denies diarrhea, Denies nausea, Denies vomiting Genitourinary: Denies dysuria, Denies hematuria Musculoskeletal: Denies myalgias Integumentary: Denies pruritus, Denies rash Neurological: Reports aphasia, Reports change in speech, Reports confusion, Reports gait dysfunction, Reports motor disturbance, Reports paresthesias, Reports sensory deficit, Denies numbness, Denies weakness Psychiatric: Denies anxiety, Denies depression Endocrine: Denies fatigue, Denies weight change Past Medical History Past Medical History: Deep Vein Thrombosis (DVT) Additional Past Medical History / Comment(s): DVT surgery History of Any Multi-Drug Resistant Organisms: None Reported Past Surgical History: Cholecystectomy, Orthopedic Surgery Additional Past Surgical History / Comment(s): tubes tied and "burnt" Past Anesthesia/Blood Transfusion Reactions: No Reported Reaction Additional Past Anesthesia/Blood Transfusion Reaction / Comment(s): no blood transfusion Past Psychological History: Anxiety Smoking Status: Current every day smoker Past Alcohol Use History: None Reported Past Drug Use History: None Reported - Past Family History Father History Unknown: Yes Medications and Allergies Home Medications Medication Instructions Recorded Confirmed Type No Known Home Medications [No 10/06/17 10/06/17 History Known Home Medications] Allergies Allergy/AdvReac Type Severity Reaction Status Date / Time aspirin AdvReac Nausea Verified 10/06/17 21:20 Physical Examination - Vital Signs Vital Signs: Vital Signs Temp Pulse Pulse Resp BP BP Pulse Ox 10/07/17 11:44 96.9 F L 59 L 20 121/60 94 L 10/07/17 08:00 97.3 F L 64 20 108/56 96 10/07/17 04:00 53 L 16 105/59 98 10/07/17 01:32 96.6 F L 67 16 110/56 95 10/07/17 00:59 72 18 110/52 98 10/07/17 00:00 71 18 112/70 98 10/06/17 23:00 71 20 117/60 97 10/06/17 22:34 20 L 20 119/62 10/06/17 22:18 77 16 135/73 99 10/06/17 21:56 76 20 121/59 97 10/06/17 21:46 91 20 121/79 97 10/06/17 20:51 90 18 119/66 97 10/06/17 20:45 98.0 F 92 18 122/56 96 Intake and Output 10/06/17 10/07/17 10/07/17 22:59 06:59 14:59 Intake Total 400 Balance 400 Intake: Oral 400 Other: Voiding Method Bedpan Weight 72.575 kg 88 kg - Constitutional General appearance: average body habitus, cooperative - EENT EENT: PERRL, mucous membranes moist - Respiratory Respiratory: lungs clear, normal breath sounds - Cardiovascular Cardiovascular: regular rate, normal S1, normal S2 Extremities: no peripheral edema bilaterally - Gastrointestinal Gastrointestinal: normoactive bowel sounds - Integumentary Integumentary: normal - Neurologic Cranial nerve examination: PERRL, EOMI, VFF, V1/V2/V3 grossly intact, face symmetric, intact gag reflex, intact corneal reflex, normal palatal elevation Speech examination: motor aphasia Sensorimotor examination: intact Motor examination - right side: 3/5: biceps, triceps, wrist flexion, wrist extension, inserting operator, hip flexors, knee extensors, dorsiflexion, toe extension (EHL) , plantarflexion Motor examination - left side: 3/5: biceps, triceps, wrist flexion, wrist extension, inserting operator, hip flexors, knee extensors, dorsiflexion, toe extension (EHL) , plantarflexion Detailed sensory examination: intact Reflex and gait examination: intact Reflexes: 1+: ankle, bicep, knee, tricep - Musculoskeletal Musculoskeletal: no pain - Psychiatric Psychiatric: mood/affect appropriate, cooperative Results - Laboratory Findings CBC and BMP: 10/06/17 21:13 10/06/17 21:13 Abnormal Lab Findings: Abnormal Labs 10/06/17 10/07/17 21:13 07:20 Chloride 108 H Carbon Dioxide 20 L Glucose 101 H Calcium 10.6 H Ur Specific [place] >1.050 H Urine Protein Trace H Assessment and Plan (1) Acute right arterial ischemic stroke, MCA (middle cerebral artery) Current Visit: Yes Status: Acute Code(s): I63.511 - CEREB INFRC D/T UNSP OCCLS OR STENOS OF RIGHT MID CEREB ART SNOMED Code(s): 575040986 (2) TIA (transient ischemic attack) Current Visit: Yes Status: Acute Code(s): G45.9 - TRANSIENT CEREBRAL ISCHEMIC ATTACK, UNSPECIFIED SNOMED Code(s): 570484760 (3) Chronic deep vein thrombosis (DVT) of femoral vein of left lower extremity Current Visit: Yes Status: Acute Code(s): I82.512 - CHRONIC EMBOLISM AND THROMBOSIS OF LEFT FEMORAL VEIN SNOMED Code(s): 889880657329742 (4) Anxiety disorder Current Visit: Yes Status: Acute Code(s): F41.9 - ANXIETY DISORDER, UNSPECIFIED SNOMED Code(s): 755957455 Plan: This patient is a 52-year-old right-handed white female who was at work yesterday and developed sudden onset of left-sided paresthesias and numbness. She also developed later some difficulty with expressive aphasia. These are all new symptoms that she has no previous history of TIA or stroke. She was brought into the emergency room at [facility] for further evaluation. She was seen in the ER by Dr. Tello who ordered a computed tomography scan of the brain and CTA angiogram of the head and neck. Patient was not a TPA candidate as she was out of the three-hour window. She was also showing rapid improvement of her symptoms in the ER. She was subsequently admitted to hospital for further evaluation. Her computed tomography scan of the brain was negative for any acute changes. CT angiogram of the head and neck were both negative. Patient continues on neurological exam today to reveal evidence of some aphasia. She has mild expressive aphasia. We have recommended she undergo an MRI of the brain for further evaluation. She is to be seen by speech therapy and physical therapy as well. Due to her chest pain she is to be evaluated by cardiology as well. Her overall prognosis at this time remains very guarded. We will continue to follow her progress closely during this admission. Time with Patient: Greater than 30
[2017-10-07] MEDS: HYDROcodone/APAP 5-325MG 1 EACH TAB PO PRN (15:45)
--- NOTE | 2017-10-07 16:22 | MR ---
EXAMINATION TYPE: MR brain wo con DATE OF EXAM: 10/07/2017 COMPARISON: 10/06/2017 HISTORY: Patient with acute left sided numbness and weakness TECHNIQUE: Multiplanar, multisequence images of the brain and brainstem is performed without intravenous contras t. FINDINGS: Diffusion weighted images demonstrate no evidence of a recent infarct or other diffusion ab normality. There is no extra-axial fluid collection. Scattered foci of nonspecific white matter saleem ge are demonstrated as T2/IR hyperintensity is within the subcortical and periventricular white matte r with the largest in the left chase radiata measuring 1 cm in the frontal lobe. Punctate nonspecifi c white matter changes also seen within the left curt. Prominent perivascular spaces also are seen at the level of the inferior basal ganglia, right greater than left. The ventricular system and cistern al spaces are normal in size and appearance. The brain volume is age appropriate. Midline structures demonstrate normal morphology. The craniocervical junction appears within normal limits. The dural venous sinuses appear patent. There is mild mucosal thickening seen dependently wi thin the right maxillary sinus and minimal mucosal thickening within the ethmoid sinuses. Remaining p aranasal sinuses and mastoid air cells are well aerated. IMPRESSION: 1. No evidence of acute territorial infarct. No midline shift or mass effect. 2. Mild burden nonspecific white matter change. Findings are most commonly related to sequela of micr oangiopathy, however demyelinating disease is also possible. Distribution is periventricular, subcort ical, and punctate focus is seen within the left curt.
--- NOTE | 2017-10-07 16:28 | CONS ---
CONSULTATION This is a 52-year-old lady who has been admitted through the emergency room yesterday by Dr. Baker. She came in with some multiple complaints. Apparently at the end of her days work at 6:00 pm she had a feeling of anxiety, tingling and numbness to the left side of her face and arm. Then she had some trouble with the speech, but at the time of my evaluation, the speech is quite good. She then had a clinical presentation that suggests a TIA and after arrival in the hospital, she complained of some chest tightness, and pressure. The pain in the chest is very sharp, atypical, comes and goes, lasts a few seconds. At the time of my evaluation, she is actually quite comfortable. Denies any symptoms of chest pain. She feels her neurological symptoms have also improved remarkably. PAST MEDICAL HISTORY: Is remarkable for some anxiety disorder and she takes some Xanax. She does not have any documented evidence of hypertension, diabetes, myocardial infarction or CVA. Patient does smoke on a regular basis. Does not use alcohol. MEDICATIONS: At home none. ALLERGIES: There is a QUESTIONABLE ALLERGY TO ASPIRIN. This seems to be more or less nausea. EXAMINATION: VITAL SIGNS: On examination, blood pressure is 120/70, pulse rate is 60 per minute and regular. HEENT: Unremarkable. Fundus was not examined by me. NECK: Supple. There is no JVD. I do not hear any carotid bruit. There is no thyromegaly. HEART: Exam reveals S1, S2 heard normally. There is no rub, murmur or gallop. LUNGS: Revealed decent air entry in bilateral lung smith. ABDOMEN: Soft, nontender. EXTREMITIES: Lower extremities reveal normal pulses. No edema. CENTRAL NERVOUS SYSTEM EXAMINATION: I did not do a detailed exam. Please refer to Dr. Perez's detailed neurological evaluation. EKG revealed a sinus mechanism without any acute changes. LABORATORY DATA: Suggests her 2 sets of troponins are normal. LDL cholesterol is 84. Her electrolyte profile is also acceptable. Patient's CT angiography of the cerebellar vasculature is unremarkable. Venous Doppler suggests chronic left deep vein thrombosis which is not new for her. She has a remote history of deep vein thrombosis. IMPRESSION: 1. Atypical chest pain. 2. History of probable transient ischemic attack being evaluated and worked up. 3. History of deep vein thrombosis in the past. RECOMMENDATIONS: From a cardiac standpoint, I do not recommend any specific evaluation. I reviewed the echocardiogram, which was a technically difficult study. There is no evidence of any filling defect to suggest thrombus. LV function is normal. I am suggesting that we will follow her telemetry closely to rule out any atrial fibrillation as a cause for her episode. We will continue telemetry for 24 hours and if she has no further arrhythmia, she will need an event monitor as well and I will see her in the office and investigate the atypical chest pain down the road with possibly a stress test. Advised to quit smoking. Thank you very much for the consult. DINO / IJN: [id number] / MEGHNA
[2017-10-07] MEDS ORDERED: KETOROLAC 30 MG/ML 1 ML VIAL IVP STA (17:39)
--- NOTE | 2017-10-07 19:55 | HP ---
HISTORY AND PHYSICAL DATE OF SERVICE: 10/07/2017 CHIEF COMPLAINT: Left-sided numbness weakness as well as chest pain. HISTORY OF PRESENT ILLNESS: This 52-year-old woman with a past history of DVT, history of cholecystectomy, history of DJD, anxiety was complaining of left-sided numbness and weakness the patient numbness, tingling and radiating to the down to the arm. Patient also admitted with chest pain. The patient came to [facility] and admitted for evaluation and treatment. After admission, the patient had multiple evaluations. The CBC was within normal limits and calcium is 10.6 and the patient also had CT angiography which showed normal CT angiography and venous Doppler was also done last night, which showed chronic DVT on the femoral vein. Otherwise brain MRI showed no evidence of any acute infarct. Nonspecific white matter changes also noted. Neurology consultation also has been sought. The patient being closely monitored. There is no history of fever, rigors. No headache, loss of consciousness. The patient has some dysarthria. PAST MEDICAL HISTORY: History of DVT, anxiety. MEDICATIONS: Prior to admission home medications are none. ALLERGIES: ASPIRIN. FAMILY HISTORY: No history of heart disease or strokes in the family. SOCIAL HISTORY: History of smoking. No history of alcohol intake. REVIEW OF SYSTEMS: ENT: As mentioned earlier. Cardiovascular: No angina or palpitations. Respirations: No cough. No hemoptysis. GI no nausea or vomiting. no dysuria. Nervous system: No numbness, weakness. Allergy/Immunology: No asthma or hayfever. Musculoskeletal : As mentioned earlier. Hematology/Oncology: No history of anemia. ENDOCRINE: No history of diabetes or hypothyroidism. Constructional: As mentioned earlier. Dermatology: Negative. Rheumatology: Negative. Psychiatric: As mentioned earlier. PHYSICAL EXAMINATION: GENERAL: The patient is alert, oriented times three. Pulse 59, blood pressure 120/60, respiration 20, temperature 97.9, pulse ox 94% on room air. HEENT: Conjunctivae normal. Oral mucosa moist. NECK: No jugular venous distention. No carotid bruit. No lymph node enlargement. CARDIOVASCULAR: S1, S2. No S3, no S4. RESPIRATORY: Breath sounds diminished in the bases. No rhonchi. No crackles. ABDOMEN: Soft, nontender. No mass palpable. LEGS: No edema. No swelling. NERVOUS SYSTEM: Higher functions as mentioned earlier. Weakness, numbness on the left side of the body. LAB STUDIES: CBC within normal limits. Calcium is 10.8. UA noted. ASSESSMENT: 1. Left-sided numbness and weakness, possible acute transient ischemic attack involving the right side of the brain. 2. Chest pain, rule out myocardial infarction or coronary artery disease. 3. Possible old deep vein thrombosis of the left leg. 4. History of deep vein thrombosis surgery. 5. History of anxiety. 6. History of nicotine dependence. RECOMMENDATIONS AND DISCUSSION: This 52-year-old woman who presented with multiple complex medical issues, we will monitor the patient closely, continue the current medications, symptomatic treatment. I would recommend Cardiology and pulmonology evaluation. I would also obtain Hematology Oncology evaluation for the finding of DVT. Otherwise prognosis guarded because of multiple complex medical issues. Further recommendations to follow. Also recommend the patient to follow up with primary physician closely after discharge. DINO / JODEE: [id number] / MTDD
[2017-10-07] MEDS: NICOTINE 14MG/24HR PATCH TRANSDERM SCH (19:58)
[2017-10-08] MEDS: HEPARIN SODIUM,PORCINE 5,000 UNIT/ML 1 ML VIAL SQ SCH ×3 (00:30→18:00)
[2017-10-08] MEDS ORDERED: ASPIRIN 325 MG TAB PO SCH (00:58)
--- NOTE | 2017-10-08 08:02 | ECHOF ---
Referral Reason:Thrombus MEASUREMENTS -------- HEIGHT: 165.1 cm WEIGHT: 72.6 kg BP: 105/59 RVIDd: 1.9 cm (< 3.3) IVSd: 0.9 cm (0.6 - 1.1) LVIDd: 4.6 cm (3.9 - 5.3) LVPWd: 0.9 cm (0.6 - 1.1) IVSs: 1.3 cm LVIDs: 3.1 cm LVPWs: 1.3 cm LAESV Index (A-L): 15.18 ml/m Ao Diam: 2.8 cm (2.0 - 3.7) AV Cusp: 1.8 cm (1.5 - 2.6) LA Diam: 2.6 cm (2.7 - 3.8) EPSS: 0.5 cm MV E Santana: 0.99 m/s MV DecT: 199 ms MV A Santana: 0.81 m/s MV E/A Ratio: 1.23 RAP: 5.00 mmHg RVSP: 22.55 mmHg MV EF SLOPE: 104.25 mm/s (70 - 150) MV EXCURSION: 1.59 cm (> 18.000) FINDINGS -------- Sinus rhythm. This was a technically difficult study with suboptimal views. The left ventricular size is normal. Left ventricular wall thickness is normal. Overall left vent ricular systolic function is normal with, an EF between 55 - 60 %. The right ventricle is normal in size and function. Normal LA size by volume 22+/-6 ml/m2. The right atrium is normal in size. 3ml of Lumason was utilized for enhancement of images. The aortic valve is trileaflet, and appears structurally normal. No aortic stenosis or regurgitation. The mitral valve leaflets are mildly thickened. There is trace mitral regurgitation. Trace tricuspid regurgitation present. Right ventricular systolic pressure is normal at < 35 mmHg. There is no evidence of pulmonary hypertension. The pulmonic valve was not well visualized. The aortic root size is normal. Normal inferior vena cava with normal inspiratory collapse consistent with estimated right atrial pre ssure of 5 mmHg. There is no pericardial effusion. CONCLUSIONS -------- 1. Sinus rhythm. 2. This was a technically difficult study with suboptimal views. 3. The left ventricular size is normal. 4. Left ventricular wall thickness is normal. 5. Overall left ventricular systolic function is normal with, an EF between 55 - 60 %. 6. Normal LA size by volume 22+/-6 ml/m2. 7. 3ml of Lumason was utilized for enhancement of images. 8. The aortic valve is trileaflet, and appears structurally normal. No aortic stenosis or regurgitati on. 9. The mitral valve leaflets are mildly thickened. 10. There is trace mitral regurgitation. 11. Trace tricuspid regurgitation present. 12. Right ventricular systolic pressure is normal at < 35 mmHg. 13. There is no evidence of pulmonary hypertension. 14. The pulmonic valve was not well visualized. 15. The aortic root size is normal. 16. There is no pericardial effusion. PROFESSOR OF ENVIRONMENTAL STUDIES: Jovan Wen RDCS
[2017-10-08] MEDS ORDERED: NICOTINE 14MG/24HR PATCH TRANSDERM SCH (09:00)
[2017-10-08] MEDS: FAMOTIDINE 20 MG TAB PO SCH (10:02)
[2017-10-08] MEDS: NICOTINE 14MG/24HR PATCH TRANSDERM SCH (10:03)
[2017-10-08 11:36] VITALS: TEMP 97.2
[2017-10-08] MEDS: HYDROcodone/APAP 5-325MG 1 EACH TAB PO PRN (12:06)
[2017-10-08] MEDS ORDERED: RX INFO: IV CONTRAST WAS GIVEN 1 EACH MISC MISCELLANE PRN (13:18)
--- NOTE | 2017-10-08 13:38 | PN ---
PROGRESS NOTE Mrs. Lazcano is a lady admitted with a question of TIA and chest pain. She has no further chest pain. Her troponins are normal. Her vital signs are stable. She is doing well. Blood pressure control is optimal. S1, S2 heard normally. Lungs are clear. Abdomen and lower extremity exam is unchanged. If transient ischemic attack is real, she should have an event monitor which I am recommending for the next four weeks and I will see her in 5 weeks. Rest of physical examination is unchanged. RECOMMENDATIONS: I am recommending an event monitor and discharge patient if okay with Neurology. I will see her in 6 weeks after the event monitor findings are noted. MMODL / IJN: [id number] /
--- NOTE | 2017-10-08 14:35 | P.PN ---
Subjective Progress Note Date: 10/08/17 This patient is a 52-year-old female who was admitted to hospital yesterday with symptoms of acute left-sided numbness and difficulty with her speech. She was admitted with a provisional diagnosis of possible TIA. Patient also had severe chest pain and is been evaluated by cardiology for this condition. Patient's symptoms suggested possibility of right hemispheric TIA. She was sent for MRI of the brain yesterday the results of which indicates no evidence for acute infarction. There was mild nonspecific white matter changes noted. We reviewed the results of the MRI today with the patient. She is doing better today and is more awake and alert. She has not had any focal weakness in her left arm or leg today. She has been up and am fleeting in the room. Patient was evaluated by cardiology and does have atypical chest pain symptoms. She is to continue on telemetry for 24 hours and may need a event monitor at time of discharge. Patient also is being considered for stress test evaluation. Patient states neurologically she remains stable. She is concerned about returning to work and this will need to be addressed by her primary care physician. We did review the results of the MRI once again in detail with the patient. We did review the notes from Dr. LARRY alas today. He is recommending the patient to be discharged with an event monitor. She will need this for at least 5-6 weeks and will follow-up with cardiology. We will continue close neurological follow-up for the patient during this admission. Patient is being considered for discharge home later today. She may follow-up in the outpatient neurology clinic in 3-4 weeks. Objective - Vital Signs Vital signs: Vital Signs Temp 97.2 F L 10/08/17 11:34 Pulse 61 10/08/17 11:38 Resp 20 10/08/17 11:38 BP 121/63 10/08/17 11:34 Pulse Ox 98 10/08/17 11:34 Intake & Output 10/07/17 10/08/17 10/08/17 18:59 06:59 18:59 Intake Total 360 500 300 Output Total 50 Balance 310 500 300 Weight 72 kg Intake: Oral 360 500 300 Output: Emesis 50 Other: Voiding Method Toilet Toilet # Voids 5 1 - Exam Physical Examination: PHYSICAL EXAMINATION: Patient is resting comfortably in bed. VITAL SIGNS: Blood pressure is [121/63]. Heart rate is [61]. Respiration is [20] . Temperature is [97.2]. HEENT: Head is atraumatic, neck is supple, there were no carotid bruits. CHEST: Lungs are clear to auscultation and percussion. CARDIAC: S1, S2 normal rate and rhythm. There is no murmur. ABDOMEN: Soft and nontender. Bowel sounds are present. EXTREMITIES: There is no pedal edema. Peripheral pulses are present. Neurological examination: Patient has a nonfocal neurological examination today. She has mild give way weakness in the left upper extremity. - Labs CBC & Chem 7: 10/06/17 21:13 10/06/17 21:13 Labs: Abnormal Lab Results - Last 24 Hours (Table) 10/07/17 Range/Units 07:20 Urine Opiates Screen Positive H (Negative) ng/mL Assessment and Plan (1) Acute right arterial ischemic stroke, MCA (middle cerebral artery) Current Visit: Yes Status: Acute Code(s): I63.511 - CEREB INFRC D/T UNSP OCCLS OR STENOS OF RIGHT MID CEREB ART SNOMED Code(s): 987169261 (2) TIA (transient ischemic attack) Current Visit: Yes Status: Acute Code(s): G45.9 - TRANSIENT CEREBRAL ISCHEMIC ATTACK, UNSPECIFIED SNOMED Code(s): 190445615 (3) Chronic deep vein thrombosis (DVT) of femoral vein of left lower extremity Current Visit: Yes Status: Acute Code(s): I82.512 - CHRONIC EMBOLISM AND THROMBOSIS OF LEFT FEMORAL VEIN SNOMED Code(s): 501177258014095 (4) Anxiety disorder Current Visit: Yes Status: Acute Code(s): F41.9 - ANXIETY DISORDER, UNSPECIFIED SNOMED Code(s): 867486327 Plan: This patient is a 52-year-old female being evaluated for recent episode of left- sided numbness and weakness. She was admitted with the diagnosis of TIA. She underwent MRI of the brain yesterday the results of which are noted above. MRI fails to reveal any evidence of acute stroke. Her clinical history is suggesting right hemispheric TIA. We are recommending the patient to be placed on aspirin daily for secondary stroke prevention. Cardiology is recommending the patient to be placed on any event monitor for 6 weeks with follow-up. Patient's neurological examination today remains nonfocal. She may follow-up in the outpatient neurology clinic in 3-4 weeks.
--- NOTE | 2017-10-08 15:13 | CT ---
CT CHEST FOR PULMONARY EMBOLISM. EXAMINATION TYPE: CT angio chest DATE OF EXAM: 10/08/2017 INDICATION: Lt upper chest pain, SOB CT DLP: 326.7 mGycm, Automated exposure control for dose reduction was used. CONTRAST: Patient injected with 51 mL of Isovue 370. COMPARISON: NONE TECHNIQUE: CT of the chest is performed on a spiral scan at 2 mm thick sections. Study is performed with intravenous contrast timed for evaluation for pulmonary embolism. This will limit additional po rtions of the evaluation. 3-D MIP images reconstructed by the technologist are reviewed on the compu ter in the coronal and sagittal planes. FINDINGS: No persistent filling defects are evident to suggest an acute pulmonary embolism. Emphysematous blebs and bulla are in the superior right apex. Few scattered bulla are within the lung smith bilaterally. There is a 0.4 cm nodule in the posterior medial right midlung. Series 5 image 84. This is new. There is an irregular density in the periphery of the right lung measuring 0.7 cm in length, series 5 image 85. There is a 0.4 cm nodule within the periphery of the posterior lateral right midlung. Seri es 5 image 84. These appear to been present previously. No mediastinal or hilar adenopathy enlarged by CT criteria is evident. The ascending aorta diameter at the level of the main pulmonary artery is 2.8 cm. The main pulmonary artery diameter at the bifur cation is 2.4 cm. Lung windows are clear. Limited CT section through the upper abdomen are unremarkable. IMPRESSIONS: 1. No acute pulmonary embolism. 2. Emphysematous changes, stable from 06/27/2013. 3. Two nodular densities periphery of the right lung appear to been present previously. 4. New posterior 0.4 cm nodule is present right midlung
[2017-10-08 15:46] VITALS: BP 118/59; PULSE 57; RESP 16
--- NOTE | 2017-10-08 20:11 | CONS ---
CONSULTATION DATE OF SERVICE: October 08, 2017. REASON FOR CONSULTATION: Chronic DVT. CHIEF COMPLAINT: Numbness in her face. Sammie is a very pleasant 52 year old lady who presented to emergency department with numbness in her left side of her face and left arm. She had a CT angiogram of her neck, which was normal. The CT angiogram of the neck and brain which were normal and a brain MRI was negative as well. The patient also did have a venous Doppler of her left lower extremity which revealed evidence of chronic deep venous thrombosis in her left leg. So, we were asked to see the patient for further evaluation and recommendation. Of note, during her hospital stay, she has been seen by Cardiology as well to evaluate for atypical chest pain and she had an echocardiogram which revealed no filling defect to suggest thrombosis and left ventricular function was normal. The patient has a history of deep venous thrombosis back in the in June of 2013 and she had an extensive deep vein thrombosis involving her left lower extremity. She did have trellis procedure done with thrombolysis and partial clot aspiration and she had a stent placement and then subsequently she was evaluated by Dr. Marinelli after that in July of 2013. At that time, there was no obvious clear provocative factor and she did twist her leg prior to her presentation at that time, but there was no significant trauma. However, it was felt that could potentially be considered provoked due to the combination of local trauma, Thurner's anomaly as well as chronic swelling in her legs. She did take warfarin at that time for about 8 months and then subsequently was discontinued and since then she has been having intermittent pain and swelling in her left lower extremity which has remained stable in nature without any progression. The patient currently feels fine. No shortness of breath. No atypical chest pain. She denies any nausea or vomiting. Denies any melena, hematochezia or hematuria, hemoptysis, hematemesis or epistaxis. She continues to smoke. PAST MEDICAL HISTORY: As stated above she has history of extensive deep vein thrombosis in the past of her left lower extremity and in June of 2014 and she has a history of anxiety. ALLERGIES: SHE IS ALLERGIC TO ASPIRIN. SOCIAL HISTORY: No history of substance abuse. She is a smoker and she continued to smoke. FAMILY HISTORY: Negative for thrombosis. REVIEW OF SYSTEMS: As stated above in history of present illness. CURRENT MEDICATION: Include Xanax 0.25 mg t.i.d. as needed, Pepcid 20 mg b.i.d., heparin 5000 units subcu every 8 hours. Elwood 5/325 mg every 6 hours as needed. Nicotrol patch. Zofran as needed. Review of systems as stated above in history of present illness. Otherwise negative. PHYSICAL EXAM: GENERAL: On physical examination she is alert, oriented x3. She does not appear to be in acute distress. Well developed, well nourished. VITAL SIGNS: Her vital signs are temperature 97.2 afebrile, pulse 61 regular, respiration 20, blood pressure 121/63. HEENT: Normocephalic, atraumatic. No obvious icterus. NECK: Supple. No jugular venous distention. CHEST equal expansion bilaterally. LUNGS: Clear to auscultation and percussion. HEART is regular rate and rhythm. ABDOMEN: Soft. No obvious organomegaly or masses. Bowel sounds present. EXTREMITIES no significant edema. SKIN no significant bruises or petechia. LYMPHATICS: No peripherally enlarged cervical or supraclavicular lymph nodes. MUSCULOSKELETAL: Moving all extremities appropriately. No percussion tenderness detected over the spine or sternum. CURRENT LABORATORY DATA: WBC 5.0, hemoglobin 15.7, hematocrit 45.2, platelet 241. Sodium 144, potassium 3.5, chloride 108, CO2 is 20, BUN is 14, creatinine 0.6. IMPRESSION: Remote history of extensive deep venous thrombosis of her left lower extremity, was anticoagulated at that time for 8 months as stated above in history of present illness. She was seen by Dr. Marinelli at that time and hypercoagulable workup was recommended, but it was never done. At this point in time, there is evidence of chronic thrombosis in her recent Doppler and there is nothing to suggest an acute event. However, in view of atypical chest pain, I would recommend to obtain a CT angiogram of the chest to make sure there is no pulmonary emboli as a cause of her atypical chest pain. If that is negative, there is no need to resume anticoagulation at this point in time, and I would recommend to follow up with Dr. Marinelli in about 2-3 weeks in the outpatient setting to consider performing hypercoagulable workup. I also advised her to discontinue smoking which by itself could be a risk factor for recurrent thrombosis. May consider anti-platelet therapy with aspirin. However, the patient is Allergic To Aspirin. We are awaiting neurology evaluation if her initial presenting symptom was felt to be related to stroke or transient transient ischemic attack then a different anti-platelet therapy such as Plavix should be considered. The above was discussed in detail with the patient and family at bedside and I have answered all their questions to their satisfaction. Thank you very much for asking me to participate in care of this nice lady. DINO / ALLANN: [id number] /
--- NOTE | 2017-10-09 05:22 | DS ---
DISCHARGE SUMMARY FINAL DIAGNOSES: 1. Left-sided numbness and weakness, possible acute transient ischemic attack involving the right side of the brain. 2. Chest pain, rule out myocardial infarction, ruled out. Rule out coronary artery disease. 3. Old deep vein thrombosis of the left leg. 4. History of deep vein thrombosis surgery. 5. History of anxiety. 6. History of nicotine dependence. DISCHARGE DISPOSITION: The patient is being discharged in stable condition with guarded prognosis. HISTORY OF PRESENT ILLNESS: This 52-year-old woman with a past medical history of multiple medical problems, admitted with numbness and chest pain. Patient was monitored closely. A CTA was done. Otherwise the patient improved significantly. The patient discharged in a stable condition with guarded prognosis with the following advice and medications: On exam, vital signs are stable. Cardiovascular: S1, S2. Abdomen: Soft. Central nervous system: No focal deficits. DISCHARGE ADVICE AND MEDICATIONS: 1. Discharge diet is cardiac. 2. Activity limited until follow up. 3. Follow up with Dr. Holliday in 1 week. 4. Follow up with cardiology and hematology as mentioned earlier. MEDICATIONS: 1. Habitrol 14 daily. 2. Xanax 0.5 t.i.d. PATIENT HAS ALLERGY TO ASPIRIN. MMODL / IJN: [id number] /
== END 2017-10-08 17:54 | disposition home or self-care (01) ==
LOC: EC 20:44 → 6SEL 10-07 00:59
PROVIDERS: ADMIT Hospitalist; ATTEND Hospitalist
DX: R53.1 Weakness (principal); R20.0 Anesthesia of skin; R07.89 Other chest pain; I82.512 Chronic embolism and thrombosis of left femoral vein; F41.9 Anxiety disorder, unspecified; R20.2 Paresthesia of skin; F17.200 Nicotine dependence, unspecified, uncomplicated; R47.81 Slurred speech; R47.1 Dysarthria and anarthria; R47.01 Aphasia; R22.43 Localized swelling, mass and lump, lower limb, bilateral; Z95.828 Presence of other vascular implants and grafts; Z90.49 Acquired absence of other specified parts of digestive tract; Z88.6 Allergy status to analgesic agent; Z82.3 Family history of stroke
CPT/HCPCS: 99285 ×2; 96372 ×2; 96374; 36415; 93005; 93306; 97161; 85379; 80061; 80053; 82550; 82553; 84484 ×2; 85025; 85610; 85730; 82272; 81003; 82306; 80306; 71046; 93971; 70496; 70450; 70498; 71275; 70551; G0378 ×2; S4990 ×2; J1644 ×2; J1885; Q9950; Q9967 ×2

== ENCOUNTER 2017-10-12 17:26 | Emergency (ER) | payer SELFPAY ==
[2017-10-12 17:31] VITALS: TEMP 98.3
[2017-10-12] MEDS ORDERED: fentaNYL (PF) 50 MCG/ML 2 ML AMP IV STA (17:49)
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
[2017-10-12 18:35] LABS: Basophils # (A) 0.1 k/uL (0-0.2); Basophils % (A) 1 %; Eosinophils # (A) 0.2 k/uL (0-0.7); Eosinophils % (A) 3 %; HCT 44.8 % (34.0-46.0); HGB 15.7 gm/dL (11.4-16.0); Lymphocytes # (A) 1.7 k/uL (1.0-4.8); Lymphocytes % (A) 22 %; MCH 32.3 pg (25.0-35.0); MCHC 34.9 g/dL (31.0-37.0); MCV 92.6 fL (80.0-100.0); Mean Platelet Volume 8.2; Monocytes # (A) 0.4 k/uL (0-1.0); Monocytes % (A) 5 %; Neutrophils # (A) 5.4 k/uL (1.3-7.7); Neutrophils % (A) 69 %; Platelet Count 211 k/uL (150-450); RBC 4.84 m/uL (3.80-5.40); RDW 13.8 % (11.5-15.5); WBC 7.7 k/uL (3.8-10.6)
[2017-10-12 18:46] LABS: ALT 36 U/L (9-52); AST 23 U/L (14-36); Albumin 4.4 g/dL (3.5-5.0); Alkaline Phosphatase 51 U/L (38-126); Amylase 82 U/L (30-110); Anion Gap 15 mmol/L; Blood Urea Nitrogen 15 mg/dL (7-17); Calcium 10.5 mg/dL (8.4-10.2); Carbon Dioxide 21 mmol/L (22-30); Chloride 108 mmol/L (98-107); Glucose 86 mg/dL (74-99); Lipase 440 U/L (23-300); Potassium 3.6 mmol/L (3.5-5.1); Sodium 144 mmol/L (137-145); Total Bilirubin 0.5 mg/dL (0.2-1.3); Total Protein 6.6 g/dL (6.3-8.2)
[2017-10-12 18:49] LABS: Creatine Kinase 29 U/L (30-135); D-Dimer 0.49 mg/L FEU (<0.60); Partial Thromboplastin Time 22.6 sec (22.0-30.0); Prothrombin Time 10.3 sec (9.0-12.0)
[2017-10-12 19:02] LABS: Creatine Kinase MB <0.2 ng/mL (0.0-2.4); Troponin I <0.012 ng/mL (0.000-0.034)
--- NOTE | 2017-10-12 19:27 | XR ---
EXAMINATION: XR chest 2V DATE AND TIME: 10/12/2017 6:36 PM ORDERING PROVIDER: Manny Childers MD CLINICAL INDICATION: Chest Pain TECHNIQUE: AP and lateral COMPARISON: None. DESCRIPTION: The lungs are clear. The pleural spaces are negative. The cardiac silhouette is not enlarged. The mediastinal and pleural silhouettes are unremarkable. The skeletal structures are intact without focal findings. The overlying soft tissues are prominent. IMPRESSION: NO ACUTE PROCESS.
[2017-10-12 20:53] VITALS: BP 100/59; PULSE 63; RESP 18
== END 2017-10-12 20:53 | disposition home or self-care (01) ==
LOC: EC 17:26
DX: M94.0 Chondrocostal junction syndrome [Tietze] (principal); R11.2 Nausea with vomiting, unspecified; R51 Headache; F17.200 Nicotine dependence, unspecified, uncomplicated; Z86.73 Personal history of transient ischemic attack (TIA), and cerebral infarction without residual deficits; Z88.6 Allergy status to analgesic agent
CPT/HCPCS: 36415; 93005; 85379; 83880; 80053; 82150; 82550; 82553; 83690; 83735; 84484; 85025; 85610; 85730; 71046; 99285; 96374; J3010

== ENCOUNTER → 2020-07-07 | Outpatient (CLI) | payer OTHER ==
--- NOTE | 2020-07-07 14:55 | XR ---
EXAMINATION TYPE: XR chest 2V DATE OF EXAM: 07/07/2020 COMPARISON: 10/12/2017 TECHNIQUE: PA and lateral views submitted. HISTORY: Preop FINDINGS: The lungs are clear and there is no pneumothorax, pleural effusion, or focal pneumonia. Hyperinflat ion correlate for COPD. Biapical pleural thickening. Cannot exclude chronic sternal deformity. IMPRESSION: 1. No acute process. Correlate for COPD.
[2020-07-07 15:12] LABS: Appearance,Urine Cloudy (Clear); Bacteria,Urine Occasional /hpf; Bilirubin,Urine Negative (Negative); Blood,Urine Large (Negative); Color,Urine Yellow; Glucose,Urine (UA) Negative (Negative); Ketones,Urine Negative (Negative); Leukocyte Esterase,Urine Moderate (Negative); Mucus,Urine Occasional /hpf; Nitrite,Urine Negative (Negative); PH, Urine 5.5 (5.0-8.0); Protein,Urine Trace (Negative); RBC,Urine 16 /hpf (0-5); Specific Gravity,Urine 1.017 (1.001-1.035); Squamous Epithelial Cell,Urine 5 /hpf (0-4); Urobilinogen,Urine <2.0 mg/dL (<2.0); WBC,Urine 30 /hpf (0-5)
[2020-07-07 23:43] LABS: HCT 45.9 % (37.2-46.3); HGB 15.3 g/dL (12.0-15.0); MCH 32.1 pg (27.0-32.0); MCHC 33.3 g/dL (32.0-37.0); MCV 96.2 fL (80.0-97.0); Mean Platelet Volume 11.9 fL (9.5-12.2); Platelet Count 255 X 10*3/uL (140-440); RBC 4.77 X 10*6/uL (4.10-5.20); RDW 13.3 % (11.5-14.5); WBC 6.79 X 10*3/uL (4.50-10.00)
[2020-07-08 04:20] LABS: African American GFR (CKD) 85.2 (60.0-200.0); Albumin/Globulin Ratio 2.5 (1.60-3.17); Anion Gap 10.8 mmol/L (4.00-12.00); BUN/Creat Ratio 17.78 Ratio (12.00-20.00); Calcium 10.5 mg/dL (8.7-10.3); Carbon Dioxide 24.2 mmol/L (21.6-31.8); Non-African American GFR(CKD) 73.5 (60.0-200.0); Potassium 4.6 mmol/L (3.5-5.5); Total Bilirubin 0.5 mg/dL (0.2-1.2)
== END ==
LOC: LABWHC1 14:18
PROVIDERS: ATTEND Obstetrics & Gynecology Gynecologic Oncology
DX: Z01.818 Encounter for other preprocedural examination (principal); C54.1 Malignant neoplasm of endometrium
CPT/HCPCS: 36415; 71046; 80053; 81001; 82378; 85027; 86304; 86850; 86900; 86901; 87086; 93005

== ENCOUNTER → 2020-07-14 | Outpatient (CLI) | payer OTHER ==
--- NOTE | 2020-07-14 14:55 | CT ---
EXAMINATION TYPE: CT abdomen pelvis w con DATE OF EXAM: 07/14/2020 COMPARISON: NONE HISTORY: 54-year-old female C54.1, Malignant Neoplasm of Endometrium TECHNIQUE: Contiguous axial scanning of the abdomen and pelvis following administration of 100 ml Iso hever 300 IV contrast. Delayed images through the kidneys and coronal/sagittal reconstructions perform ed. CT DLP: 1154 mGycm Automated exposure control for dose reduction was used. FINDINGS: Heart normal size without pericardial effusion. Lung bases clear without pleural effusion. Tiny hiatal hernia. A couple nonspecific hypodensities are present within the liver measuring up to 9 mm, likely cysts. P ortal venous system is patent. Bile duct dilated at 1.0 cm, acceptable given postcholecystectomy status. The main pancreatic duct is borderline in caliber at 3 mm. No distal obstructing lesion is seen. Amaya izzy of the pancreas appear satisfactory. Adrenal glands, kidneys, and spleen appear within normal limits. No dilated small bowel, free fluid, or free air. No mesenteric or retroperitoneal lymphadenopathy. There appears to be stenting of the upper left common iliac vein. Normal appendix. Oral contrast progressed to the lower ascending colon. Moderate stool in the right s jamaal of the abdomen. No pericolonic inflammatory change. Bladder distended. A 1.3 cm mural based soft tissue nodule along the left posterior wall of the bladd er, axial image 73 and sagittal image 42. Both ovaries are visualized. Uterus is anteverted with abno rmal, masslike endometrial stripe thickening up to 2.1 cm. No abnormal fluid collection in the pelvis or pelvic lymphadenopathy. Bones: Some degenerative bony ankylosis across the left SI joint. No osseous destructive process. IMPRESSION: 1. ABNORMAL MASSLIKE THICKENING OF THE ENDOMETRIUM COMPATIBLE WITH PATIENT'S KNOWN ENDOMETRIAL CARCIN FAITH. 2. A 1.3 CM SOFT TISSUE NODULE ALONG THE LEFT POSTERIOR BLADDER WALL. A CONCURRENT UROTHELIAL NEOPLAS M/BLADDER CANCER SHOULD BE EXCLUDED. 3. OTHERWISE, NO EVIDENCE FOR METASTATIC DISEASE IN THE ABDOMEN OR PELVIS.
== END ==
LOC: RADCTMAIN 11:50
PROVIDERS: ATTEND Obstetrics & Gynecology Gynecologic Oncology
DX: C54.1 Malignant neoplasm of endometrium (principal); C67.9 Malignant neoplasm of bladder, unspecified; R93.89 Abnormal findings on diagnostic imaging of other specified body structures
CPT/HCPCS: 74177; Q9967 ×2

== ENCOUNTER 2020-08-08 18:00 | Emergency (ER) | payer OTHER ==
[2020-08-08] MEDS ORDERED: SODIUM CHLORIDE 0.9% 1,000 ML IV SCH (18:15)
[2020-08-08] MEDS: SODIUM CHLORIDE 0.9% 500 ML 500 ML IV SCH ×2 (18:37→20:49)
[2020-08-08 19:06] LABS: Basophils % (A) 0 %; Eosinophils # (A) 0.1 k/uL (0-0.7); Eosinophils % (A) 1 %; HGB 10.8 gm/dL (11.4-16.0); Lymphocytes # (A) 1.3 k/uL (1.0-4.8); Lymphocytes % (A) 9 %; MCH 31.9 pg (25.0-35.0); MCHC 33.6 g/dL (31.0-37.0); Mean Platelet Volume 8.1; Monocytes # (A) 0.5 k/uL (0-1.0); Monocytes % (A) 4 %; Neutrophils # (A) 11.9 k/uL (1.3-7.7); Neutrophils % (A) 85 %; Platelet Count 477 k/uL (150-450); RBC 3.37 m/uL (3.80-5.40); WBC 13.9 k/uL (3.8-10.6)
[2020-08-08 19:12] LABS: Appearance,Urine Cloudy (Clear); Bilirubin,Urine Negative (Negative); Blood,Urine Negative (Negative); Color,Urine Yellow; Glucose,Urine (UA) Negative (Negative); Ketones,Urine 1+ (Negative); Leukocyte Esterase,Urine Small (Negative); Mucus,Urine Many /hpf; Nitrite,Urine Negative (Negative); Protein,Urine 1+ (Negative); Specific Gravity,Urine 1.022 (1.001-1.035); Squamous Epithelial Cell,Urine 31 /hpf (0-4); Urobilinogen,Urine <2.0 mg/dL (<2.0); WBC,Urine 8 /hpf (0-5)
[2020-08-08 19:14] LABS: ALT 69 U/L (4-34); AST 86 U/L (14-36); African American GFR (CKD) >90 (>60 ml/min/1.73 sqM); Albumin 2.6 g/dL (3.5-5.0); Alkaline Phosphatase 128 U/L (38-126); Anion Gap 6 mmol/L; Blood Urea Nitrogen 12 mg/dL (7-17); Calcium 8.6 mg/dL (8.4-10.2); Carbon Dioxide 25 mmol/L (22-30); Chloride 107 mmol/L (98-107); Glucose 109 mg/dL (74-99); Non-African American GFR(CKD) >90 (>60 ml/min/1.73 sqM); Potassium 4.3 mmol/L (3.5-5.1); Sodium 138 mmol/L (137-145); Total Bilirubin 0.3 mg/dL (0.2-1.3); Total Protein 5.2 g/dL (6.3-8.2)
[2020-08-08 19:19] LABS: Partial Thromboplastin Time 22.5 sec (22.0-30.0); Prothrombin Time 10.5 sec (9.0-12.0)
--- NOTE | 2020-08-08 19:59 | CT ---
EXAMINATION TYPE: CT abdomen pelvis w con DATE OF EXAM: 08/08/2020 COMPARISON: 07/14/2020. HISTORY: 10 days post hysterectomy, abdominal pain. CT DLP: 1018.4 mGycm Automated exposure control for dose reduction was used. TECHNIQUE: Helical acquisition of images was performed from the lung bases through the pelvis. CONTRAST: Performed without Oral Contrast and with IV Contrast, patient injected with 100 mL of Isovue 300. FINDINGS: LUNG BASES: Small left pleural effusion with adjacent consolidation. Additional small right lower lob e consolidation. LIVER/GB: No acute abnormality is appreciated. Scattered few simple appearing low attenuating hepatic foci, measuring up to 6 mm and compatible with benign cysts. Cholecystectomy. PANCREAS: No significant abnormality is seen. SPLEEN: No significant abnormality is seen. ADRENALS: No significant abnormality is seen. KIDNEYS: No significant abnormality is seen. FREE AIR: No free air is visualized. RETROPERITONEAL ADENOPATHY: None visualized REPRODUCTIVE ORGANS: Absent uterus URINARY BLADDER: Left posterior urinary bladder lesion is better depicted on the prior study. PELVIC ADENOPATHY: None visualized. OSSEOUS STRUCTURES: No significant abnormality is seen. No bowel obstruction or free air BOWEL: Midline laparotomy seen. Moderate mesenteric fat stranding predominantly in the left upper ab domen with small free fluid. OTHER: Left common iliac vein stent seen. Moderate aortoiliac atherosclerotic disease. IMPRESSION: INTERVAL POSTSURGICAL CHANGES RELATED TO HYSTERECTOMY. MODERATE MESENTERIC INFLAMMATORY CHANGES MOST PRONOUNCED IN THE LEFT UPPER ABDOMEN WITH SMALL FREE FL UID. FINDINGS MAY RELATE TO POSTSURGICAL CHANGES WITH SUPERIMPOSED INFECTION NOT EXCLUDED. Small left pleural effusion and bibasilar consolidations, correlate for pneumonia versus atelectasis. Known urinary bladder lesion, better seen on prior study. Additional chronic findings as above.
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
[2020-08-08 20:15] VITALS: RESP 20
[2020-08-08] MEDS ORDERED: HYDROmorphone 1 MG/ML 1 ML SYRINGE IVP STA (20:38)
[2020-08-08] MEDS ORDERED: ACET/COD 300 MG/30 MG STARTER PACK 6 TAB BTL PO STA (22:16)
[2020-08-08 22:33] VITALS: BP 134/67; PULSE 83; TEMP 98.3
== END 2020-08-08 22:33 | disposition home or self-care (01) ==
LOC: EC 18:00
DX: R10.84 Generalized abdominal pain (principal); E78.5 Hyperlipidemia, unspecified; F17.200 Nicotine dependence, unspecified, uncomplicated; Z79.899 Other long term (current) drug therapy; Z86.718 Personal history of other venous thrombosis and embolism; Z86.73 Personal history of transient ischemic attack (TIA), and cerebral infarction without residual deficits; Z79.1 Long term (current) use of non-steroidal anti-inflammatories (NSAID); Z20.822 Contact with and (suspected) exposure to COVID-19; F41.9 Anxiety disorder, unspecified
CPT/HCPCS: 36415; 93005; 80053; 83605; 85025; 85610; 85730; 81001; 87040; 84145; 87635; 74177; 99284; 96374; 96361; J1170; Q9967

== ENCOUNTER 2020-09-29 13:29 | Emergency (ER) | payer OTHER ==
[2020-09-29 13:37] VITALS: TEMP 98.1
[2020-09-29] MEDS ORDERED: SODIUM CHLORIDE 0.9% 1,000 ML IV STA (14:12)
[2020-09-29] MEDS ORDERED: ONDANSETRON 4 MG/2 ML VIAL IVP STA (14:12)
--- NOTE | 2020-09-29 14:18 | ED ---
Abdominal Pain HPI - General Chief Complaint: Abdominal Pain Stated Complaint: post op pain Time Seen by Provider: 09/29/20 13:44 Source: patient, family, RN notes reviewed Mode of arrival: ambulatory Limitations: no limitations - History of Present Illness Initial Comments: 55-year-old female patient, alert and oriented 4, presents with family member complaining of 2 months of abdominal pain. Patient states had total hysterectomy for uterine cancer 2 months ago injuring the procedure her bowel was punctured 3 times patient states that over the past 2 months she has had abdominal pain with intermittent nausea vomiting. Patient states that have bowel movement today but was very hard and took 20 minutes expelled the stool. Patient is not on any stool softeners at this time after discharge from surgery was given suppositories but is out. He patient states surgery was in [place] does not remember surgeon's name. Patient has history of CVA, DVT, high cholesterol, cholecystectomy and total hysterectomy. Patient states also has bladder cancer and needs another surgery scheduled. Family states that patient looks pale and has been weak. Patient denies hematochezia or hematemesis, denies cough or fevers. Patient states she is a pack-a-day smoker. MD Complaint: abdominal pain -: month(s) (2) Location: diffuse Radiation: epigastric Severity: moderate Quality: cramping Consistency: intermittent Improves With: medication (Zofran) Worsens With: eating, vomiting Context: recent surgery/procedure (Total hysterectomy 2 months ago with bowel perforation; and also has bladder cancer and needs to surgery) Associated Symptoms: nausea, vomiting, constipation Treatments Prior to Arrival: other (Zofran) - Related Data Home Medications Medication Instructions Recorded Confirmed Ibuprofen 1,600 mg PO Q8H PRN 09/29/20 09/29/20 Ondansetron Odt [Zofran ODT] 4 mg PO Q8H PRN 09/29/20 09/29/20 Percocet (Unknown Dose) 1 tab PO ONCE 09/29/20 09/29/20 Previous Rx's Medication Instructions Recorded Cephalexin [Keflex] 500 mg PO Q12HR 7 Days #14 cap 09/29/20 Docusate [Colace] 100 mg PO DAILY 14 Days #14 capsule 09/29/20 Ibuprofen [Motrin] 600 mg PO Q8HR PRN #20 tab 09/29/20 Potassium Chloride ER [K-Dur 20] 20 meq PO DAILY 30 Days #30 tab 09/29/20 Allergies Allergy/AdvReac Type Severity Reaction Status Date / Time aspirin AdvReac Nausea Verified 09/29/20 14:15 Review of Systems ROS Statement: Those systems with pertinent positive or pertinent negative responses have been documented in the HPI. ROS Other: All systems not noted in ROS Statement are negative. Past Medical History Past Medical History: CVA/TIA, Deep Vein Thrombosis (DVT), Hyperlipidemia Additional Past Medical History / Comment(s): DVT surgery History of Any Multi-Drug Resistant Organisms: None Reported Past Surgical History: Cholecystectomy, Hysterectomy, Orthopedic Surgery, Tubal Ligation Additional Past Surgical History / Comment(s): tubes tied and "burnt" Past Anesthesia/Blood Transfusion Reactions: No Reported Reaction Additional Past Anesthesia/Blood Transfusion Reaction / Comment(s): no blood transfusion Past Psychological History: Anxiety Smoking Status: Current every day smoker Past Alcohol Use History: None Reported Past Drug Use History: None Reported - Past Family History Father History Unknown: Yes General Exam Limitations: no limitations General appearance: alert, in no apparent distress Head exam: Present: atraumatic, normocephalic, normal inspection Eye exam: Present: normal appearance, PERRL, EOMI. Absent: scleral icterus, conjunctival injection, periorbital swelling ENT exam: Present: normal exam, normal oropharynx, mucous membranes moist Neck exam: Present: normal inspection, full ROM. Absent: tenderness, meningismus, lymphadenopathy, thyromegaly Respiratory exam: Present: normal lung sounds bilaterally. Absent: respiratory distress, wheezes, rales, rhonchi, stridor, chest wall tenderness, accessory mu scle use, decreased breath sounds Cardiovascular Exam: Present: regular rate, normal rhythm, normal heart sounds. Absent: systolic murmur, diastolic murmur, rubs, gallop, clicks GI/Abdominal exam: Present: soft, distended, tenderness, normal bowel sounds, other (Midline healed scar noted). Absent: guarding, rebound, rigid, diminished bowel sounds, pulsatile mass Rectal exam: Present: deferred Extremities exam: Present: normal inspection, full ROM, normal capillary refill, calf tenderness (No swelling negative Homans sign). Absent: tenderness, pedal edema, joint swelling Back exam: Present: normal inspection, full ROM. Absent: tenderness, CVA tenderness (R), CVA tenderness (L) Neurological exam: Present: alert, oriented X3, CN II-XII intact. Absent: motor sensory deficit Psychiatric exam: Present: normal affect, normal mood Skin exam: Present: warm, dry, intact, pallor. Absent: rash, cyanosis, diaphoretic, erythema Course Vital Signs 09/29/20 09/29/20 13:33 16:03 Temperature 98.1 F Pulse Rate 86 78 Respiratory 20 18 Rate Blood Pressure 99/55 106/69 O2 Sat by Pulse 100 Oximetry Medical Decision Making - Medical Decision Making X-ray shows no free air, nonobstructive bowel gas pattern. WBC count is 10.5, potassium is 3.2 which patient was given 40meq of k-dur. Urine shows positive leukocytes, 14 wbc's, and trace ketones. Patient denies hematochezia or hematemesis. Patient denies fever. Bowel sounds are present in all 4 quadrants Patient was given 1 liter IV fluid bolus and zofran for nausea with relief. Will provide a prescription for Keflex to treat her UTI, Colace for constipation, potassium supplementation and Motrin 800 mg as requested by patient for pain is discussed with Dr. Childers was agreeable to this plan of care. Patient will follow up with primary care doctor on October 13 as scheduled. - Lab Data Result diagrams: 09/29/20 14:37 09/29/20 14:37 Lab Results 09/29/20 09/29/20 09/29/20 Range/Units 14:37 14:37 14:37 WBC 10.5 (3.8-10.6) k/uL RBC 4.20 (3.80-5.40) m/uL Hgb 11.7 (11.4-16.0) gm/dL Hct 37.4 (34.0-46.0) % MCV 88.9 D (80.0-100.0) fL MCH 27.9 (25.0-35.0) pg MCHC 31.4 (31.0-37.0) g/dL RDW 15.5 (11.5-15.5) % Plt Count 484 H (150-450) k/uL MPV 8.1 Neutrophils % 75 % Lymphocytes % 18 % Monocytes % 4 % Eosinophils % 1 % Basophils % 0 % Neutrophils # 7.9 H (1.3-7.7) k/uL Lymphocytes # 1.9 (1.0-4.8) k/uL Monocytes # 0.4 (0-1.0) k/uL Eosinophils # 0.1 (0-0.7) k/uL Basophils # 0.0 (0-0.2) k/uL Hypochromasia Slight Poikilocytosis Slight PT 10.1 (9.0-12.0) sec INR 0.9 (<1.2) APTT 22.0 (22.0-30.0) sec Sodium (137-145) mmol/L Potassium (3.5-5.1) mmol/L Chloride (98-107) mmol/L Carbon Dioxide (22-30) mmol/L Anion Gap mmol/L BUN (7-17) mg/dL Creatinine (0.52-1.04) mg/dL Est GFR (CKD-EPI)AfAm (>60 ml/min/1.73 sqM) Est GFR (CKD-EPI)NonAf (>60 ml/min/1.73 sqM) Glucose (74-99) mg/dL Plasma Lactic Acid Serafin (0.7-2.0) mmol/L Calcium (8.4-10.2) mg/dL Total Bilirubin (0.2-1.3) mg/dL AST (14-36) U/L ALT (4-34) U/L Alkaline Phosphatase (38-126) U/L Total Protein (6.3-8.2) g/dL Albumin (3.5-5.0) g/dL Amylase (30-110) U/L Lipase (23-300) U/L Urine Color Yellow Urine Appearance Cloudy H (Clear) Urine pH 6.0 (5.0-8.0) Ur Specific Morehouse 1.034 (1.001-1.035) Urine Protein 1+ H (Negative) Urine Glucose (UA) Negative (Negative) Urine Ketones Trace H (Negative) Urine Blood Negative (Negative) Urine Nitrite Negative (Negative) Urine Bilirubin 1+ H (Negative) Urine Urobilinogen 4.0 (<2.0) mg/dL Ur Leukocyte Esterase Small H (Negative) Urine RBC 1 (0-5) /hpf Urine WBC 14 H (0-5) /hpf Ur Squamous Epith Cells 3 (0-4) /hpf Hyaline Casts 92 H (0-2) /lpf Urine Mucus Many H (None) /hpf 09/29/20 09/29/20 Range/Units 14:37 14:37 WBC (3.8-10.6) k/uL RBC (3.80-5.40) m/uL Hgb (11.4-16.0) gm/dL Hct (34.0-46.0) % MCV (80.0-100.0) fL MCH (25.0-35.0) pg MCHC (31.0-37.0) g/dL RDW (11.5-15.5) % Plt Count (150-450) k/uL MPV Neutrophils % % Lymphocytes % % Monocytes % % Eosinophils % % Basophils % % Neutrophils # (1.3-7.7) k/uL Lymphocytes # (1.0-4.8) k/uL Monocytes # (0-1.0) k/uL Eosinophils # (0-0.7) k/uL Basophils # (0-0.2) k/uL Hypochromasia Poikilocytosis PT (9.0-12.0) sec INR (<1.2) APTT (22.0-30.0) sec Sodium 140 (137-145) mmol/L Potassium 3.2 L (3.5-5.1) mmol/L Chloride 104 (98-107) mmol/L Carbon Dioxide 30 (22-30) mmol/L Anion Gap 6 mmol/L BUN 14 (7-17) mg/dL Creatinine 0.68 (0.52-1.04) mg/dL Est GFR (CKD-EPI)AfAm >90 (>60 ml/min/1.73 sqM) Est GFR (CKD-EPI)NonAf >90 (>60 ml/min/1.73 sqM) Glucose 105 H (74-99) mg/dL Plasma Lactic Acid Serafin 1.0 (0.7-2.0) mmol/L Calcium 10.1 (8.4-10.2) mg/dL Total Bilirubin 0.4 (0.2-1.3) mg/dL AST 24 (14-36) U/L ALT 20 (4-34) U/L Alkaline Phosphatase 91 (38-126) U/L Total Protein 6.9 (6.3-8.2) g/dL Albumin 3.7 (3.5-5.0) g/dL Amylase 46 (30-110) U/L Lipase 58 (23-300) U/L Urine Color Urine Appearance (Clear) Urine pH (5.0-8.0) Ur Specific Morehouse (1.001-1.035) Urine Protein (Negative) Urine Glucose (UA) (Negative) Urine Ketones (Negative) Urine Blood (Negative) Urine Nitrite (Negative) Urine Bilirubin (Negative) Urine Urobilinogen (<2.0) mg/dL Ur Leukocyte Esterase (Negative) Urine RBC (0-5) /hpf Urine WBC (0-5) /hpf Ur Squamous Epith Cells (0-4) /hpf Hyaline Casts (0-2) /lpf Urine Mucus (None) /hpf Disposition Clinical Impression: UTI (urinary tract infection), Constipation Disposition: HOME SELF-CARE Condition: Fair Instructions (If sedation given, give patient instructions): Constipation (ED), Urinary Tract Infection in Women (ED) Additional Instructions: Take medications as prescribed and follow up with the primary care doctor in 1 week. Keep your appointment with your surgeon on October 13. Prescriptions: Docusate [Colace] 100 mg PO DAILY 14 Days #14 capsule Potassium Chloride ER [K-Dur 20] 20 meq PO DAILY 30 Days #30 tab Cephalexin [Keflex] 500 mg PO Q12HR 7 Days #14 cap Ibuprofen [Motrin] 600 mg PO Q8HR PRN #20 tab PRN Reason: Pain Is patient prescribed a controlled substance at d/c from ED?: No Referrals: Jacki Mann DO [Primary Care Provider] - 1-2 days Time of Disposition: 16:10
--- NOTE | 2020-09-29 15:05 | XR ---
EXAMINATION TYPE: XR KUB DATE OF EXAM: 09/29/2020 2:48 PM CLINICAL HISTORY: Recurrent abdominal pain 10 days after hysterectomy surgery. TECHNIQUE: Two Upright KUB images of the abdomen are obtained. COMPARISON: CT August 08, 2020 FINDINGS: Scattered gas is seen in non-distended small bowel loops. Gas and fecal material is seen in non-distended colon. Metallic stent graft over the central lower abdomen and corresponds to left com mon iliac vein stent. No free air. Visualized osseous structures are intact. IMPRESSION: Overall nonobstructive bowel gas pattern.
[2020-09-29 15:12] LABS: ALT 20 U/L (4-34); AST 24 U/L (14-36); African American GFR (CKD) >90 (>60 ml/min/1.73 sqM); Albumin 3.7 g/dL (3.5-5.0); Alkaline Phosphatase 91 U/L (38-126); Amylase 46 U/L (30-110); Anion Gap 6 mmol/L; Blood Urea Nitrogen 14 mg/dL (7-17); Calcium 10.1 mg/dL (8.4-10.2); Carbon Dioxide 30 mmol/L (22-30); Chloride 104 mmol/L (98-107); Glucose 105 mg/dL (74-99); Lipase 58 U/L (23-300); Non-African American GFR(CKD) >90 (>60 ml/min/1.73 sqM); Sodium 140 mmol/L (137-145); Total Bilirubin 0.4 mg/dL (0.2-1.3); Total Protein 6.9 g/dL (6.3-8.2)
[2020-09-29 15:13] LABS: Potassium 3.2 mmol/L (3.5-5.1)
[2020-09-29 15:20] LABS: Appearance,Urine Cloudy (Clear); Bilirubin,Urine 1+ (Negative); Blood,Urine Negative (Negative); Color,Urine Yellow; Glucose,Urine (UA) Negative (Negative); Hyaline Casts,Urine 92 /lpf (0-2); Ketones,Urine Trace (Negative); Leukocyte Esterase,Urine Small (Negative); Mucus,Urine Many /hpf; Nitrite,Urine Negative (Negative); Protein,Urine 1+ (Negative); RBC,Urine 1 /hpf (0-5); Specific Gravity,Urine 1.034 (1.001-1.035); Squamous Epithelial Cell,Urine 3 /hpf (0-4); WBC,Urine 14 /hpf (0-5)
[2020-09-29 15:21] LABS: Basophils % (A) 0 %; Eosinophils # (A) 0.1 k/uL (0-0.7); Eosinophils % (A) 1 %; HCT 37.4 % (34.0-46.0); HGB 11.7 gm/dL (11.4-16.0); Hypochromasia Slight; Lymphocytes # (A) 1.9 k/uL (1.0-4.8); Lymphocytes % (A) 18 %; MCH 27.9 pg (25.0-35.0); MCHC 31.4 g/dL (31.0-37.0); Mean Platelet Volume 8.1; Monocytes # (A) 0.4 k/uL (0-1.0); Monocytes % (A) 4 %; Neutrophils # (A) 7.9 k/uL (1.3-7.7); Neutrophils % (A) 75 %; Platelet Count 484 k/uL (150-450); Poikilocytosis Slight; RDW 15.5 % (11.5-15.5); WBC 10.5 k/uL (3.8-10.6)
[2020-09-29 15:25] LABS: INR 0.9 (<1.2); Prothrombin Time 10.1 sec (9.0-12.0)
[2020-09-29 15:32] LABS: MCV 88.9 fL (80.0-100.0)
[2020-09-29] MEDS ORDERED: POTASSIUM CHLORIDE ER 20 MEQ TAB.ER PO STA (15:50)
[2020-09-29 16:04] VITALS: BP 106/69; PULSE 78; RESP 18
== END 2020-09-29 16:15 | disposition home or self-care (01) ==
LOC: EC 13:29
DX: N39.0 Urinary tract infection, site not specified (principal); K59.00 Constipation, unspecified; E78.5 Hyperlipidemia, unspecified; E78.00 Pure hypercholesterolemia, unspecified; C67.9 Malignant neoplasm of bladder, unspecified; F17.200 Nicotine dependence, unspecified, uncomplicated; Z86.73 Personal history of transient ischemic attack (TIA), and cerebral infarction without residual deficits; Z79.1 Long term (current) use of non-steroidal anti-inflammatories (NSAID); Z79.899 Other long term (current) drug therapy; Z85.42 Personal history of malignant neoplasm of other parts of uterus; Z85.51 Personal history of malignant neoplasm of bladder; Z86.718 Personal history of other venous thrombosis and embolism; Z88.6 Allergy status to analgesic agent; Z90.710 Acquired absence of both cervix and uterus; Z90.49 Acquired absence of other specified parts of digestive tract
CPT/HCPCS: 36415; 80053; 82150; 83605; 83690; 85025; 85610; 85730; 81001; 87086; 74018; 99284; 96374; 96361; J2405

== ENCOUNTER → 2021-02-12 | Outpatient (CLI) | payer OTHER ==
--- NOTE | 2021-02-16 09:56 | MM ---
Reason for exam: screening (asymptomatic). Last mammogram was performed 4 years and 9 months ago. History: Patient is postmenopausal, has history of endometrial cancer at age 55, and has history of other cancer at age 55. Took estrogen for 2 months. Physical Findings: A clinical breast exam by your physician is recommended on an annual basis and results should be correlated with mammographic findings. MG Screening Mammo w CAD Bilateral CC and MLO view(s) were taken. Prior study comparison: May 12, 2016, bilateral MG screening mammo w CAD. There are scattered fibroglandular densities. There is chronic nodularity in the right breast. Two nodular asymmetries superior left MLO and subareolar left MLO view. ASSESSMENT: Incomplete: need additional imaging evaluation, BI-RAD 0 RECOMMENDATION: Special view mammogram of the left breast. If lesion persists on supplemental views, image directed ultrasound is recommended. [facility] will attempt to contact patient to return for supplemental views and ultrasound if indicated.
== END | disposition home or self-care (01) ==
LOC: RADMAMWWP 16:09
PROVIDERS: ATTEND Family Medicine
DX: Z12.31 Encounter for screening mammogram for malignant neoplasm of breast (principal); Z85.42 Personal history of malignant neoplasm of other parts of uterus
CPT/HCPCS: 77067

== ENCOUNTER → 2021-02-17 | Outpatient (CLI) | payer OTHER ==
--- NOTE | 2021-02-17 11:21 | MM ---
Reason for exam: additional evaluation requested from abnormal screening. Last mammogram was performed less than 1 month ago. History: Patient is postmenopausal, has history of endometrial cancer at age 55, and has history of other cancer at age 55. Took estrogen for 2 months. Physical Findings: Nurse Summary: 1 x 1cm nodule in the left breast at 6 o'clock (nurse ts). MG Work Up Mamm w CAD LT Spot compression CC, spot compression ML, and ML view(s) were taken of the left breast. Prior study comparison: February 12, 2021, bilateral MG screening mammo w CAD. May 12, 2016, bilateral MG screening mammo w CAD. The breast tissue is heterogeneously dense. This may lower the sensitivity of mammography. There is no discrete abnormality including area of concern. Two areas under compression and palpable region. This finding is changed when compared with previous exams. These results were verbally communicated with the patient and result sheet given to the patient on 02/17/21. ASSESSMENT: Incomplete: need additional imaging evaluation, BI-RAD 0 RECOMMENDATION: Ultrasound of the left breast. (palpable)
--- NOTE | 2021-02-17 11:23 | USB ---
Reason for exam: additional evaluation requested from abnormal screening. History: Patient is postmenopausal, has history of endometrial cancer at age 55, and has history of other cancer at age 55. Took estrogen for 2 months. US Breast Workup Limited LT Technologist: Joyce Serrano Left limited breast ultrasound including focal area of concern, retroareolar and axilla demonstrates no cystic or solid lesion seen. Scanned 5-7 o'clock. No abnormality at palpable. These results were verbally communicated with the patient and result sheet given to the patient on 02/17/21. ASSESSMENT: Negative, BI-RAD 1 RECOMMENDATION: Follow-up diagnostic mammogram of the left breast in 6 months.
== END | disposition home or self-care (01) ==
LOC: RADMAMWWP 08:23
PROVIDERS: ATTEND Family Medicine
DX: R92.2 Inconclusive mammogram (principal); Z85.42 Personal history of malignant neoplasm of other parts of uterus
CPT/HCPCS: 77065

== ENCOUNTER → 2023-11-06 | Outpatient (CLI) | payer OTHER ==
--- NOTE | 2023-11-06 21:28 | CTL ---
EXAMINATION TYPE: CT Low Dose Lung DATE OF EXAM ORDERED: 11/06/2023 HISTORY: 58-year-old female Z12.2 SCREENING FOR MALIGNANT NEOPLASM ,F17.210 NICOTINE DEP. Lung cancer screening. Current smoker with 44 pack-year history. CT DLP: 81.[address] CTDI: 2.3 mGy Automated exposure control for dose reduction was used. SCREENING VISIT: Baseline COMPARISON: 10/08/2017 TECHNIQUE: Low dose computed tomography scan was performed through the chest at 1 mm thick sections a nd reconstructed images in multiple planes at 1 mm and [address] DIAGNOSTIC QUALITY: Satisfactory FINDINGS: Heart normal size without pericardial effusion. 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 No thoracic lymphadenopathy by CT size criteria. There are numerous scattered bilateral 7 mm and smaller pulmonary nodules, unchanged back to 8 compatible with a benign etiology. COPD with scattered mild to moderate emphysematous change. Strandy scarring and atelectasis scattered throughout the lungs. No consolidation or pleural effusion. No new suspicious pulmonary nodule is se en. Visualized upper abdomen shows a couple stable hepatic cysts measuring up to 1.3 cm. Cholecystectomy change. Bones: No osseous destructive process. IMPRESSION: 1. LungRADS 2, benign. Stable 7 mm and smaller pulmonary nodules back to 2018. 2. COPD with mild to moderate emphysema. Recommend smoking cessation. CT LUNG RAD AND CT CHEST RECOMMENDATION: Lung-Rad 2 Benign Appearance or Behavior: Continue annual sc reening with LDCT in 12 months. S Modifier (other clinically significant findings): None
--- NOTE | 2023-11-07 13:48 | BD ---
EXAMINATION TYPE: Axial Bone Density DATE OF EXAM: 11/06/2023 CLINICAL HISTORY: 58 years old Female. ICD-10 CODE: Z78.0 ASYMPTOMATIC MENOPAUSAL STA Height: 62 Weight: 167.7 FRAX RISK QUESTIONS: Alcohol (3 or more units per day): no Family History (Parent hip fracture): no Glucocorticoids (More than 3mos): no (Ex: prednisone, prednisolone, methylprednisolone, dexamethasone, and hydrocortisone). History of Fracture in Adulthood: no Secondary Osteoporosis: 1. Type 1 Diabetes: no 2. Hyperthyroidism: no 3. Menopause before 45: no 4. Malnutrition: no 5. Chronic liver disease: no Rheumatoid Arthritis: no Current Tobacco Use: yes RISK FACTORS HISTORY OF: Hip Fracture (Right/Left): no Spine Fracture: no History of Wrist Fracture: no Surgery to Spine/Hip(right/left)/Wrist (right/left): no MEDICATIONS: Thyroid Medications: no Osteoporosis Medications: no EXAM MEASUREMENTS: Bone mineral densitometry was performed using the [employer] System. Bone mineral density as measured about the Lumbar spine is: ----- L1-L4(G/cm2): 1.002 T Score Values are as follows: ----- L1: -1.5 ----- L2: -1.9 ----- L3: -0.9 ----- L4: -1.7 ----- L1-L4: -1.5 Z Score Values are as follows: ----- L1: -1.0 ----- L2: -1.3 ----- L3: -0.4 ----- L4: -1.2 ----- L1-L4: -1.0 Baseline Study Bone mineral density about the R hip (g/cm2): 0.752 Bone mineral density about the L hip (g/cm2): 0.738 T Score values are as follows: -----R Neck: -2.2 -----L Neck: -1.9 -----R Total: -2.0 -----L Total: -2.1 Z Score values are as follows: -----R Neck: -1.4 -----L Neck: -1.1 -----R Total: -1.6 -----L Total: -1.7 Baseline Study FRAX%s: The graph provided illustrates a 9.0% chance for a major osteoporotic fx and a 2.1% chance fo r the hips probability for fx in 10 years time. IMPRESSION: Osteopenia (T Score between -2.5 and -1). There is slightly increased risk of fracture and the patient may be considered for treatment. Re-Screen 2-5 years. NOTE: T-SCORE=SD OF THE YOUNG ADULT MEAN.
--- NOTE | 2023-11-07 18:20 | MM ---
Reason for Exam: Screening (asymptomatic). Last mammogram was performed 2 year(s) and 8 month(s) ago. Patient History: Menarche at age 13. First Full-Term at age 18. Left ovary removed at age 55. Right ovary removed at age 55. Hysterectomy at age 55. Postmenopausal. Endometrial cancer, age 55. Other cancer, age 55. Estrogen for 2 months. Risk Values: Maeve 5 year model risk: 1.0%. NCI Lifetime model risk: 6.4%. Prior Study Comparison: 05/12/2016 Bilateral Screening Mammogram, [facility]. 02/12/2021 Bilateral Screening Mammogram, [facility]. 02/17/2021 Left Diagnostic Mammogram, [facility]. Tissue Density: There are scattered areas of fibroglandular density. Findings: Analyzed By CAD. Chronic bilateral nodularity. There is no suspicious group of microcalcifications or new suspicious mass in either breast. Overall Assessment: Benign, BI-RAD 2 Management: Screening Mammogram of both breasts in 1 year. . Patient should continue monthly self-breast exams. A clinical breast exam by your physician is recommended on an annual basis. This exam should not preclude additional follow-up of suspicious palpable abnormalities. Note on Maeve scores and lifetime risk: 1. A Maeve score greater than 3% is considered moderate risk. If this is the case, consider specialist referral to assess eligibility for a risk reducing agent. 2. If overall lifetime risk for the development of breast cancer is 20% or higher, the patient may qualify for future screening with alternating mammogram and breast MRI. Electronically signed and approved by: Alberto Stover M.D. Radiologist
== END | disposition home or self-care (01) ==
LOC: RADMAMWWP 13:15
PROVIDERS: ATTEND Family Medicine
DX: Z12.31 Encounter for screening mammogram for malignant neoplasm of breast (principal); Z12.2 Encounter for screening for malignant neoplasm of respiratory organs; M85.89 Other specified disorders of bone density and structure, multiple sites; R91.8 Other nonspecific abnormal finding of lung field; J44.9 Chronic obstructive pulmonary disease, unspecified; J43.9 Emphysema, unspecified; Z78.0 Asymptomatic menopausal state; F17.210 Nicotine dependence, cigarettes, uncomplicated
CPT/HCPCS: 71271; 77067; 77080

== ENCOUNTER → 2024-11-11 | Outpatient (CLI) | payer OTHER ==
--- NOTE | 2024-11-14 07:40 | CTL ---
EXAMINATION TYPE: CT Low Dose Lung DATE OF EXAM ORDERED: 11/12/2024 COMPARISON: CT Low Dose Lung 11/06/2023, CTA chest 10/08/2017 CLINICAL INDICATION: Female, 59 years old with history of Z12.2, F17.210 NICOTINE DEPENDENCE, CIGARET ARACELI,; [facility], smoked 1 packs a day for 45 yrs, current smoker, Lung cancer screening, History of Smoking /tobacco use. TECHNIQUE: Low dose computed tomography scan was performed through the chest at 1 mm thick sections a nd reconstructed images in multiple planes at 1 mm and [address] DLP: 87.[address] CTDI: 2.4 mGy Automated exposure control for dose reduction was used. CT DIAGNOSTIC QUALITY: Satisfactory FINDINGS: Nodules: Stable posterior right upper lobe 4.6 mm pulmonary nodule (series 6, image 16). Stable right lower lobe 4.3 mm pulmonary nodule (series 6, image 28). Stable right lower lobe 6.4 mm pulmonary nodule (series 6, image 32). Stable right lower lobe 6.3 mm pulmonary nodule (series 6, image 33). Stable posterior left lower lobe 5.2 mm pulmonary nodule (series 6, image 33). Stable lateral right lower lobe 5.9 mm pulmonary nodule (series 6, image 37). Stable peripheral left lower lobe 4.1 mm pulmonary nodule (series 6, image 37). Stable peripheral right lower lobe 5.4 mm pulmonary nodule (series 6, image 38). Stable peripheral lateral left lower lobe 5.0 mm pulmonary nodule (series 6, image 40). No new or enlarging pulmonary nodules identified. LUNGS: COPD: Severity: Mild paraseptal emphysematous changes. Fibrosis: Severity: None Lymph nodes: None Other findings: Linear atelectasis within the right middle lobe. RIGHT PLEURAL SPACE: Effusion: None Calcification: None Thickening: None Pneumothorax: None LEFT PLEURAL SPACE: Effusion: None Calcification: None Thickening: None Pneumothorax: None HEART: Heart Size: Normal Coronary Calcification: None Pericardial Effusion: None OTHER FINDINGS: Upper abdomen: Couple of stable hepatic cysts measuring up to 1.4 cm. Gallbladder is surgically absen t. Bony thorax: None Supraclavicular region: None Other: None IMPRESSION: 1. Several scattered stable pulmonary nodules from prior exam. No new or enlarging pulmonary nodules. 2. Mild emphysematous changes. CT LUNG RAD AND CT CHEST RECOMMENDATION: Lung-Rad 2 Benign Appearance or Behavior: Continue annual sc reening with LDCT in 12 months. S Modifier (other clinically significant findings): None [facility], , 11/14/2024 7:38 AM
== END | disposition home or self-care (01) ==
LOC: RADCTMAIN 15:32
PROVIDERS: ATTEND Family Medicine
DX: Z12.2 Encounter for screening for malignant neoplasm of respiratory organs (principal); F17.210 Nicotine dependence, cigarettes, uncomplicated; R91.8 Other nonspecific abnormal finding of lung field; J43.9 Emphysema, unspecified
CPT/HCPCS: 71271